=== PATIENT | female | born 1975 | race Caucasian/White ===

== ENCOUNTER → 2016-11-12 | Outpatient (CLI) | payer BC ==
--- NOTE | 2016-11-19 09:22 | MM ---
Reason for exam: screening (asymptomatic). Last mammogram was performed 4 years and 5 months ago. History: Family history of breast cancer in mother at age 55 and breast cancer in paternal aunt at age 67. Reductions of both breasts, December 2008. Took hormonal contraceptives for 20 years beginning at age 14. Physical Findings: A clinical breast exam by your physician is recommended on an annual basis and results should be correlated with mammographic findings. MG 3D Screening Mammo W/Cad Bilateral CC and MLO view(s) were taken. Prior study comparison: December 05, 2014, mammogram, performed at [facility]. November 02, 2013, mammogram, performed at [facility]. June 05, 2012, CAD bilateral diagnostic mammogram. November 06, 2011, CAD bilateral diagnostic mammogram. The breast tissue is heterogeneously dense. This may lower the sensitivity of mammography. Finding: There are typically benign dystrophic, round, grouped/clustered and diffuse calcifications in both breasts, greater in the left breast. Previous mammotome biopsy in the right breast. There is no discrete abnormality. ASSESSMENT: Benign, BI-RAD 2 RECOMMENDATION: Routine screening mammogram of both breasts in 1 year.
== END | disposition home or self-care (01) ==
LOC: RADMAMWWP 16:53
PROVIDERS: ATTEND Obstetrics & Gynecology
DX: Z12.31 Encounter for screening mammogram for malignant neoplasm of breast (principal)
CPT/HCPCS: 77063; G0202

== ENCOUNTER → 2017-01-29 | Outpatient (CLI) | payer BC ==
[2017-01-29 17:49] LABS: Basophils % (A) 1 %; CH 32.2; CHCM 33.2; Eosinophils # (A) 0.2 k/uL (0-0.7); Eosinophils % (A) 2 %; HCT 40.8 % (34.0-46.0); HDW 2.32; HGB 13.3 gm/dL (11.4-16.0); Luc # (Auto) 0.08; Luc % (Auto) 1; Lymphocytes # (A) 2.1 k/uL (1.0-4.8); Lymphocytes % (A) 27 %; MCH 31.8 pg (25.0-35.0); MCHC 32.6 g/dL (31.0-37.0); MCV 97.4 fL (80.0-100.0); Mean Platelet Volume 8.4; Monocytes # (A) 0.4 k/uL (0-1.0); Monocytes % (A) 5 %; Neutrophils # (A) 5.1 k/uL (1.3-7.7); Neutrophils % (A) 65 %; RBC 4.19 m/uL (3.80-5.40); RDW 13.3 % (11.5-15.5); WBC 7.8 k/uL (3.8-10.6); WBC (Perox) 7.25
== END | disposition home or self-care (01) ==
LOC: LABPAT 16:09
PROVIDERS: ATTEND Obstetrics & Gynecology
DX: Z01.812 Encounter for preprocedural laboratory examination (principal)
CPT/HCPCS: 36415; 85025

== ENCOUNTER → 2018-05-26 | Outpatient (CLI) | payer BC ==
--- NOTE | 2018-05-28 09:33 | MM ---
Reason for exam: screening (asymptomatic). Last mammogram was performed 1 year and 6 months ago. History: Family history of breast cancer in mother at age 55 and breast cancer in paternal aunt at age 67. Reductions of both breasts, December 2008. Took hormonal contraceptives for 20 years beginning at age 14. Physical Findings: A clinical breast exam by your physician is recommended on an annual basis and results should be correlated with mammographic findings. MG 3D Screening Mammo W/Cad Bilateral CC and MLO view(s) were taken. Prior study comparison: November 12, 2016, bilateral MG 3d screening mammo w/cad. December 05, 2014, mammogram, performed at [facility]. The breast tissue is heterogeneously dense. This may lower the sensitivity of mammography. Previous mammotome biopsy in the right breast. Stable scattered calcifications. No significant changes when compared with prior studies. ASSESSMENT: Benign, BI-RAD 2 RECOMMENDATION: Routine screening mammogram of both breasts in 1 year.
== END | disposition home or self-care (01) ==
LOC: RADMAMWWP 15:46
PROVIDERS: ATTEND Obstetrics & Gynecology
DX: Z12.31 Encounter for screening mammogram for malignant neoplasm of breast (principal); Z98.890 Other specified postprocedural states
CPT/HCPCS: 77063; 77067

== ENCOUNTER → 2019-06-09 | Outpatient (CLI) | payer BC ==
--- NOTE | 2019-06-09 22:58 | CT ---
EXAMINATION TYPE: CT abdomen pelvis w con DATE OF EXAM: 06/09/2019 HISTORY: lower abdominal pain CT DLP: 2058.8mGycm Automated Exposure Control for Dose Reduction was Utilized. CONTRAST: CT scan of the abdomen and pelvis is performed with oral and with IV Contrast, patient injected with 100 mL of Isovue 300. COMPARISON: None. FINDINGS: LUNG BASES: Cholecystectomy clips are seen. Liver is low dense relative to spleen consistent with dif fuse fatty infiltration. LIVER/GB: No significant abnormality is appreciated. PANCREAS: No significant abnormality is seen. SPLEEN: No significant abnormality is seen. ADRENALS: No significant abnormality is seen. KIDNEYS: No significant abnormality is seen. BOWEL: The oral contrast reaches level of the distal transverse colon. No suspicious small or large b owel dilatation is seen. Lap band position and angle is thought satisfactory epigastric region just b elow diaphragm. Note is made of moderate eccentric left wall thickening distal esophagus for referenc e axial image 9. This is over a roughly 3 to 4 cm segment coronal image 62 for reference. Follow-up a dvised as eccentric esophagitis and/or neoplasm are differential. Slightly redundant sigmoid colon. P oor distention of proximal sigmoid colon level coronal image 33 makes evaluation at this level is sub optimal, similar areas noted in the mid to distal sigmoid colon. UTERUS/ADNEXA: Heterogeneous anteverted uterus. Normal-sized ovaries in the adnexa adjacent to the u terine fundus. LYMPH NODES: No greater than 1cm abdominal or pelvic lymph nodes are appreciated. OSSEOUS STRUCTURES: Mild to moderate multilevel spurring in the spine. Mild to moderate disc space na rrowing with vacuum disc phenomenon L4-L5 level. Mild to moderate narrowing and spurring both hip ahsan nts, left greater than right. OTHER: Small fat-containing umbilical hernia axial image 61. IMPRESSION: 1. Acute source of lower abdominal pain not identified. 2. Lap band identified satisfactory position. Focal moderate to severe concentric wall thickening dis dorcas esophagus above the lap band present. Differential includes esophagitis and neoplasm. Further inv estigation with direct visualization is advised.
== END | disposition home or self-care (01) ==
LOC: RADCTMAIN 15:18
PROVIDERS: ATTEND Family Medicine
DX: S30.1XXD Contusion of abdominal wall, subsequent encounter (principal)
CPT/HCPCS: 74177; Q9967

== ENCOUNTER → 2019-06-22 | Outpatient (CLI) | payer BC ==
[2019-06-22 13:38] VITALS: RESP 16
--- NOTE | 2019-06-22 13:44 | P.HPBAR ---
Bariatric H&P - History & Physicial H&P Date: 06/22/19 History & Physicial: Visit/CC: BAND f/u Patient initial contact: Initial weight: Initial weight in pounds: Height: Initial BMI: Last weight: Current weight: Current weight in pounds: Current BMI: [place] body weight (based on NIH guidelines): Excess body weight loss: The patient is a 44 year-old F who presents for Bariatric Assessment. Patient here for assessment of lap band. Patient had her lap band placed [address] Galdamez. Patient states she has had difficulties over the years with frequent vomiting, 9 cough, bad reflux. Thought her band was emptied. In April had an episode of sudden abdominal discomfort that occurred in the middle of the night. The following day the pain had resolved however she noticed ecchymosis around her umbilicus. She was able to provide a photo for me to see. Underwent ult rasound following that which was normal per patient. Following that had a CAT scan of the abdomen which showed a small umbilical hernia and some thickening of the esophagus. Patient is weight is currently 242. She was to 43 at time of lap band placement. She is interested in band removal. Past Medical History Past Medical History: Hypertension History of Any Multi-Drug Resistant Organisms: None Reported Past Surgical History: Bariatric Surgery, Cholecystectomy, Tonsillectomy Additional Past Surgical History / Comment(s): carpel tunnel SX, lap band, EXC ABD SKIN REMOVAL Past Anesthesia/Blood Transfusion Reactions: Postoperative Nausea & Vomiting (PONV) Past Psychological History: No Psychological Hx Reported Smoking Status: Never smoker Past Alcohol Use History: None Reported Past Drug Use History: None Reported - Past Family History Mother Family Medical History: Cancer Additional Family Medical History / Comment(s): BREAST Surgical - Exam Vital Signs Resp 16 06/22/19 13:36 Physical exam: General: Well-developed, well-nourished HEENT: Normocephalic, sclerae nonicteric Abdomen: Nontender, nondistended, prior incisions from panniculectomy noted, no palpable hernia Extremities: No edema Neuro: Alert and oriented Bariatric Assessment & Plan (1) Intractable vomiting Narrative/Plan: Options discussed in detail with the patient. Would like to first proceed with checking the band for fluid. Her band was accessed sterilely with a Hector needle. 1 mL was evacuated. Band is now empty. I suspect this patient has a 4 mL band. At this time recommend upper endoscopy. Following that likely would recommend an proceed with lap band removal given the patient's intractable vomiting, dysphagia, night cough, and reflux. We'll continue with observation of the small umbilical hernia that is nonpalpable on exam. Status: Acute Bariatric Checklist Checklist: Plan: Checklist: EGD: 1. Hiatal hernia: 2. H. Pylori: HgbA1c: Vitamin D: Smoking: Never smoker Primary care physician referral: Psychiatry clearance: Cardiology clearance: Sleep study: Diet journal: VTE risk score: VTE risk level: Rehab needs at discharge:
[2019-06-22 13:47] VITALS: BP 158/106; PULSE 87; TEMP 98.3
== END | disposition home or self-care (01) ==
LOC: BARWHC3 13:18
PROVIDERS: ATTEND Surgery
DX: Z46.51 Encounter for fitting and adjustment of gastric lap band (principal); R11.10 Vomiting, unspecified; Z98.84 Bariatric surgery status; Z90.49 Acquired absence of other specified parts of digestive tract
CPT/HCPCS: 99211

== ENCOUNTER → 2019-09-08 | Outpatient (CLI) | payer BC | END | disposition home or self-care (01) | LOC: LABWHC1 12:13 | PROVIDERS: ATTEND Surgery | DX: Z11.59 Encounter for screening for other viral diseases (principal) ==

== ENCOUNTER 2019-09-10 07:14 | Day surgery (SDC) | payer BC ==
[2019-09-09 10:17] VITALS: BMI 40.3
[~2019-09-10 07:14] MED LIST: LACTATED RINGERS 1,000 ML IV SCH
[2019-09-10 07:42] VITALS: TEMP 97
[2019-09-10] MEDS ORDERED: LIDOCAINE 1% (10MG/ML) FOR IV START INTRADERMA ONE (07:43)
[2019-09-10] MEDS ORDERED: ONDANSETRON 4 MG/2 ML VIAL IVP ONE (07:43)
[2019-09-10] MEDS ORDERED: SCOPOLAMINE 1.5MG/72HR PATCH TRANSDERM ONE (07:43)
[2019-09-10] MEDS ORDERED: DEXAMETHASONE SOD PHOSPHATE 10 MG/ML 1 ML VIAL IV ONE (07:43)
[2019-09-10] MEDS ORDERED: fentaNYL (PF) 50 MCG/ML 2 ML AMP ONE (07:52)
[2019-09-10] MEDS ORDERED: PROPOFOL 10 MG/ML 20 ML VIAL IV ONE (07:52)
[2019-09-10] MEDS ORDERED: MIDAZOLAM 2 MG/2 ML VIAL ONE (07:52)
--- NOTE | 2019-09-10 07:55 | P.GSHP ---
History of Present Illness H&P Date: 09/10/19 Chief Complaint: Intractable vomiting Patient known to our service from recent bariatric evaluation. Please refer to H&P from June. Here today for upper endoscopy to evaluate for symptoms of dysphagia and vomiting. Band is now empty. Interested in band removal. Past Medical History Past Medical History: GERD/Reflux, Hypertension Additional Past Medical History / Comment(s): recent CT scan showed "thickening" around esophagus History of Any Multi-Drug Resistant Organisms: None Reported Past Surgical History: Bariatric Surgery, Breast Surgery, Cholecystectomy, Tonsillectomy Additional Past Surgical History / Comment(s): carpel tunnel SX, lap band, panniculectomy, breast reduction Past Anesthesia/Blood Transfusion Reactions: Motion Sickness, Postoperative Nausea & Vomiting (PONV) Smoking Status: Never smoker - Past Family History Mother Family Medical History: Cancer Additional Family Medical History / Comment(s): BREAST Medications and Allergies Home Medications Medication Instructions Recorded Confirmed Type Lisinopril-Hctz 20-12.5 mg 1 tab PO DAILY 09/09/19 09/10/19 History [Zestoretic 20-12.5] Allergies Allergy/AdvReac Type Severity Reaction Status Date / Time No Known Allergies Allergy Verified 09/09/19 10:11 Surgical - Exam Vital Signs Temp Pulse Resp BP Pulse Ox 97 F L 91 16 154/89 94 L 09/10/19 07:38 09/10/19 07:38 09/10/19 07:38 09/10/19 07:38 09/10/19 07:38 Physical exam: General: Well-developed, well-nourished HEENT: Normocephalic, sclerae nonicteric Abdomen: Nontender, nondistended Extremities: No edema Neuro: Alert and oriented Assessment and Plan (1) Intractable vomiting Narrative/Plan: Will proceed with EGD at this time. Current Visit: No Status: Acute Code(s): R11.10 - VOMITING, UNSPECIFIED SNOMED Code(s): 766472268
--- NOTE | 2019-09-10 08:08 | P.PCN ---
Date of Procedure: 09/10/19 Procedure(s) Performed: Preoperative Dx: Intractable vomiting Postoperative Dx: Mild gastritis, gastric polyps Procedure: EGD with Bx Anesthesia: Sedation Endoscopist: Dr. Schneider Specimens: Antrum, gastric polyps Endoscopic Procedure: The patient was on the endoscopy table in the left decubitus position. The Olympus gastroscope was inserted into the oropharynx and passed under direct visualization to the region of the third portion of the duodenum. From that point the scope was slowly withdrawn inspecting all surfaces carefully. There were no neoplastic inflammatory or polypoid lesions throughout the duodenum. The pylorus was widely patent. The stomach was carefully inspected. There was mild gastritis present. Multiple gastric polyps were also seen mainly in the proximal stomach. A biopsy of both the antrum and the gastric polyps took place.the band plication appeared normal. There was no evidence of erosion. The esophagus was then carefully examined. There were no neoplastic inflammatory or polypoid lesions throughout the visualized esophagus. The patient was then taken to the recovery room in stable condition per anesthesia guidelines. Recommendations: Await biopsy results. Will likely proceed with band removal
[2019-09-10 08:25] VITALS: BP 130/90; PULSE 83; RESP 20
== END 2019-09-10 08:45 | disposition home or self-care (01) ==
LOC: ORWHC2ENDO 07:14
PROVIDERS: ATTEND Surgery
DX: K29.50 Unspecified chronic gastritis without bleeding (principal); K31.7 Polyp of stomach and duodenum; K21.9 Gastro-esophageal reflux disease without esophagitis; I10 Essential (primary) hypertension; Z90.49 Acquired absence of other specified parts of digestive tract; Z98.84 Bariatric surgery status; E66.01 Morbid (severe) obesity due to excess calories; Z68.41 Body mass index [BMI] 40.0-44.9, adult; Z98.890 Other specified postprocedural states; Z80.3 Family history of malignant neoplasm of breast; Z79.899 Other long term (current) drug therapy
CPT/HCPCS: 81025; 88305; 43239; J1100; J2250; J2405; J3010; J2704

== ENCOUNTER → 2019-09-14 | Outpatient (CLI) | payer BC ==
[2019-09-14 08:57] LABS: Basophils % (A) 0 %; Eosinophils # (A) 0.2 k/uL (0-0.7); Eosinophils % (A) 3 %; HCT 43.2 % (34.0-46.0); HGB 14.1 gm/dL (11.4-16.0); Lymphocytes # (A) 1.7 k/uL (1.0-4.8); Lymphocytes % (A) 24 %; MCH 32.1 pg (25.0-35.0); MCHC 32.7 g/dL (31.0-37.0); Mean Platelet Volume 8.6; Monocytes # (A) 0.3 k/uL (0-1.0); Monocytes % (A) 4 %; Neutrophils # (A) 4.8 k/uL (1.3-7.7); Neutrophils % (A) 68 %; Platelet Count 232 k/uL (150-450); RBC 4.41 m/uL (3.80-5.40); RDW 12.7 % (11.5-15.5)
[2019-09-14 09:07] LABS: ALT 26 U/L (4-34); AST 24 U/L (14-36); African American GFR (CKD) >90 (>60 ml/min/1.73 sqM); Albumin 4.1 g/dL (3.5-5.0); Alkaline Phosphatase 59 U/L (38-126); Anion Gap 7 mmol/L; Blood Urea Nitrogen 14 mg/dL (7-17); Carbon Dioxide 27 mmol/L (22-30); Chloride 104 mmol/L (98-107); Glucose 95 mg/dL (74-99); Non-African American GFR(CKD) >90 (>60 ml/min/1.73 sqM); Potassium 4.5 mmol/L (3.5-5.1); Sodium 138 mmol/L (137-145); Total Bilirubin 0.5 mg/dL (0.2-1.3); Total Protein 6.8 g/dL (6.3-8.2)
== END | disposition home or self-care (01) ==
LOC: LABPAT 07:07
PROVIDERS: ATTEND Surgery
DX: Z01.818 Encounter for other preprocedural examination (principal); Z01.810 Encounter for preprocedural cardiovascular examination
CPT/HCPCS: 36415; 80053; 85025; 93005

== ENCOUNTER → 2019-09-14 | Outpatient (CLI) | payer BC ==
--- NOTE | 2019-09-14 10:06 | MM ---
Reason for exam: screening (asymptomatic). Last mammogram was performed 1 year and 4 months ago. History: Family history of breast cancer in mother at age 55 and breast cancer in paternal aunt at age 67. Reductions of both breasts, December 2008. Took hormonal contraceptives for 20 years beginning at age 14. Physical Findings: A clinical breast exam by your physician is recommended on an annual basis and results should be correlated with mammographic findings. MG 3D Screening Mammo W/Cad Bilateral CC, MLO, and XCCL view(s) were taken. Prior study comparison: May 26, 2018, bilateral MG 3d screening mammo w/cad. November 12, 2016, bilateral MG 3d screening mammo w/cad. The breast tissue is heterogeneously dense. This may lower the sensitivity of mammography. Benign appearing bilateral calcifications. No suspicious abnormality. No significant changes when compared with prior studies. ASSESSMENT: Benign, BI-RAD 2 RECOMMENDATION: Routine screening mammogram of both breasts in 1 year.
== END | disposition home or self-care (01) ==
LOC: RADMAMWWP 07:05
PROVIDERS: ATTEND Obstetrics & Gynecology
DX: Z12.31 Encounter for screening mammogram for malignant neoplasm of breast (principal)
CPT/HCPCS: 77063; 77067

== ENCOUNTER 2019-09-27 07:12 | Day surgery (SDC) | payer BC ==
[2019-09-24 10:40] VITALS: BMI 40.3
[~2019-09-27 07:12] MED LIST changes: +DEXAMETHASONE SOD PHOSPHATE 10 MG/ML 1 ML VIAL IV ONE; +HYDROmorphone 0.5 MG/0.5 ML SYRINGE IVP PRN; +LIDOCAINE 1% (10MG/ML) FOR IV START INTRADERMA PRN; +ONDANSETRON 4 MG/2 ML VIAL IVP ONE
--- NOTE | 2019-09-27 07:54 | P.GSHP ---
History of Present Illness H&P Date: 09/27/19 Chief Complaint: Intractable vomiting 44-year-old female who underwent laparoscopic band placement 2002. She has had trouble over the years with frequent vomiting, reflux, and night cough. When she was seen in [place] band was emptied. Unfortunately some of her symptoms pe rsisted following that. She had an interesting episode where she noticed ecchymosis around her umbilicus after having upper abdominal discomfort. She has had an ultrasound that was normal. CAT scan showed a small umbilical hernia and some esophageal thickening. Recent EGD showed gastritis and gastric polyps. No prolapse or erosion was seen. Polyps were benign. Patient remains interested in band removal. Past Medical History Past Medical History: GERD/Reflux, Hypertension History of Any Multi-Drug Resistant Organisms: None Reported Past Surgical History: Bariatric Surgery, Cholecystectomy, Tonsillectomy Additional Past Surgical History / Comment(s): carpel tunnel SX, lap band, EXC ABD SKIN REMOVAL Past Anesthesia/Blood Transfusion Reactions: Previous Problems w/ Anesthesia, Postoperative Nausea & Vomiting (PONV) Additional Past Anesthesia/Blood Transfusion Reaction / Comment(s): when waking in past d/p dropped Smoking Status: Never smoker - Past Family History Mother Family Medical History: Cancer Additional Family Medical History / Comment(s): BREAST Medications and Allergies Home Medications Medication Instructions Recorded Confirmed Type Lisinopril-Hctz 20-12.5 mg 1 tab PO DAILY 09/09/19 09/24/19 History [Zestoretic 20-12.5] Allergies Allergy/AdvReac Type Severity Reaction Status Date / Time No Known Allergies Allergy Verified 09/24/19 10:36 Surgical - Exam Physical exam: General: Well-developed, well-nourished HEENT: Normocephalic, sclerae nonicteric Abdomen: Nontender, nondistended Extremities: No edema Neuro: Alert and oriented Assessment and Plan (1) Intractable vomiting Narrative/Plan: 44-year-old female with frequent vomiting and reflux despite lap band being empty. We'll proceed with lap band removal at this time. The risks of bleeding, infection, stenosis, stricture, leak, abscess, fistula formation, peritonitis, weight gain, reflux, persistent vomiting, conversion to an open procedure, NC, PE, DVT, and were discussed. The patient understands and wishes to proceed. Current Visit: No Status: Acute Code(s): R11.10 - VOMITING, UNSPECIFIED SNOMED Code(s): 208258422
[2019-09-27] MEDS ORDERED: SCOPOLAMINE 1.5MG/72HR PATCH TRANSDERM ONE (08:09)
[2019-09-27] MEDS ORDERED: NEOSTIGMINE 1 MG/ML 10 ML VIAL ONE (09:13)
[2019-09-27] MEDS ORDERED: PROPOFOL 10 MG/ML 20 ML VIAL IV ONE (09:13)
[2019-09-27] MEDS ORDERED: ROCURONIUM BROMIDE 10 MG/ML 5 ML VIAL IV ONE (09:13)
[2019-09-27] MEDS ORDERED: GLYCOPYRROLATE 0.2 MG/ML 2 ML VIAL ONE (09:13)
[2019-09-27] MEDS ORDERED: KETOROLAC 30 MG/ML 1 ML VIAL ONE (09:13)
[2019-09-27] MEDS ORDERED: MIDAZOLAM 2 MG/2 ML VIAL ONE (09:13)
[2019-09-27] MEDS ORDERED: LIDOCAINE 1% INJ 10MG/ML (20 ML MDV) ONE (09:13)
[2019-09-27] MEDS ORDERED: SUCCINYLCHOLINE CHLORIDE 100 MG/5 ML SYR IV ONE (09:13)
[2019-09-27] MEDS ORDERED: HYDROmorphone (PF) 1 MG/ML ONE (09:13)
[2019-09-27] MEDS ORDERED: fentaNYL (PF) 50 MCG/ML 2 ML AMP ONE (09:13)
[2019-09-27] MEDS ORDERED: HEPARIN SODIUM,PORCINE 5,000 UNIT/ML 1 ML VIAL SQ ONE (09:15)
[2019-09-27] MEDS ORDERED: BUPIVACAINE (PF) 0.25% 30 ML VIAL SQ ONE (09:43)
[2019-09-27] MEDS ORDERED: LACTATED RINGERS 1,000 ML IV ONE (10:19)
[2019-09-27] MEDS ORDERED: NALOXONE 0.4 MG/ML 1 ML VIAL IV PRN (10:57)
--- NOTE | 2019-09-27 10:59 | P.OP ---
Date of Procedure: 09/27/19 Procedure(s) Performed: PREOPERATIVE DIAGNOSIS: Band intolerance/abdominal pain POSTOPERATIVE DIAGNOSIS: Same PROCEDURE: Laparoscopic lap band removal SURGEON: Jennie EBL: Minimal ANESTHESIA: General COMPLICATIONS: None OPERATIVE PROCEDURE: The patient was brought and placed on the operating room table in the supine position. The patient was placed under general anesthesia at that time. The patient was then placed in lithotomy. The abdomen was prepped and draped in the usual sterile fashion. The previous port incision was localized and then incised using a scalpel. The port was easily excised using electrocautery. Entrance into the peritoneal cavity occurred using a 5 mm optical trocar through the old trocar entrance site. Insufflation took place to 15 mmHg. A right subxiphoid 5 mm trocar was placed. This was then removed and the medium Megan hook was used to elevate the left lobe of the liver anteriorly. An additional 5 mm trocar was placed under direct visualization in the left lateral upper quadrant. The original 5 mm trocar was switched to a 15 mm trocar. A additional 5 mm trocar was placed in the right upper quadrant under direct dilatation. Another 5 mm trocar was placed in the left periumbilical location to help with retraction. There were adhesions to the band and the buckle that were lysed using electrocautery. The band was then cut using the laparoscopic gregoria. The band was then removed easily in 1 piece through the 15 mm trocar site. The stomach itself was inspected and revealed no evidence of erosion or prolapse. The fascia at the 15 mm site was closed using a [id number] Theodore-Rafat 0 Vicryl stitch. The trochars were then removed. The subcutaneous tissues at the port site was closed using a 3-0 Vicryl suture. The skin at all 5 incision sites were closed using 4-0 Monocryl sutures. Skin glue and sterile dressings were then applied. DISPOSITION: Stable to recovery room
[2019-09-27 11:02] VITALS: TEMP 96.8
[2019-09-27] MEDS ORDERED: diphenhydrAMINE 50 MG/ML 1 ML VIAL IVP ONE (11:12)
[2019-09-27] MEDS ORDERED: SODIUM CHLORIDE 0.9% 1,000 ML IV ONE ×2 (11:38)
[2019-09-27] MEDS ORDERED: ONDANSETRON 4 MG/2 ML VIAL IVP ONE (12:50)
[2019-09-27 13:05] VITALS: RESP 18
[2019-09-27 14:01] VITALS: BP 147/82; PULSE 93
== END 2019-09-27 14:24 | disposition home or self-care (01) ==
LOC: OR 07:12
PROVIDERS: ATTEND Surgery
DX: K95.09 Other complications of gastric band procedure (principal); K21.9 Gastro-esophageal reflux disease without esophagitis; I10 Essential (primary) hypertension; Z79.899 Other long term (current) drug therapy; Z98.84 Bariatric surgery status; Z90.49 Acquired absence of other specified parts of digestive tract; Z90.89 Acquired absence of other organs; Z80.3 Family history of malignant neoplasm of breast; Z98.890 Other specified postprocedural states
CPT/HCPCS: 81025; 43774; J2250; J1200; J1644; J1100; J2710; J0690; J2405; J2001; J3010; J1885; J1170; J0330; J2704

== ENCOUNTER → 2019-10-05 | Outpatient (CLI) | payer BC ==
[2019-10-05 12:24] VITALS: BP 154/101; PULSE 83; RESP 16; TEMP 98.2; BMI 42.5
--- NOTE | 2019-10-05 15:41 | P.BASOAP ---
Subjective Progress Note Date: 10/05/19 Principal diagnosis: Lap band removal Patient here today to recheck after recent lap band removal. Doing well at this time. No further nausea or vomiting. Mild pain at the port extraction site. She was able to eat pizza and steak without dysphagia. Objective - Vital Signs Vital signs: Vital Signs Temp 98.2 F 10/05/19 12:20 Pulse 83 10/05/19 12:20 Resp 16 10/05/19 12:20 BP 154/101 10/05/19 12:20 Pulse Ox Intake & Output 10/04/19 10/05/19 10/05/19 18:59 06:59 18:59 Weight 112.491 kg - Exam Abdomen: Soft, nontender, nondistended, incisions clean and dry Assessment/Plan (1) Intractable vomiting Narrative/Plan: Patient doing well at this time. Resume normal diet and activities. Follow-up as needed. Plan: Date: 10/05/19 Initial Weight: Initial BMI: Current Weight: 112.491 kg Current BMI: 42.5 Type of Surgery: Total Volume in Band: 0 Previous Volume: Volume Removed: Volume Added: Band Size:
== END | disposition home or self-care (01) ==
LOC: BARWHC3 12:15
PROVIDERS: ATTEND Surgery
DX: Z46.51 Encounter for fitting and adjustment of gastric lap band (principal); R11.10 Vomiting, unspecified
CPT/HCPCS: 99211

== ENCOUNTER → 2020-07-05 | Outpatient (CLI) | payer BC ==
--- NOTE | 2020-07-05 15:57 | US ---
EXAMINATION TYPE: US transvaginal DATE OF EXAM: 07/05/2020 COMPARISON: CT 2019 CLINICAL HISTORY: R10.2 pelvic pain. Irregular heavy cycles, pelvic pain, 3, para 2, miscarr iage 1, history of uterine ablation 2017 TECHNIQUE: Transvaginal exam only per ordering physician. Date of LMP: 07/02/2020 EXAM MEASUREMENTS: Uterus: 10.8 x 5.5 x 5.7 cm Endometrial Stripe: 0.7 cm Difficult and limited study due to patient body habitus 1. Uterus: limited visualization, heterogenous, multiple nabothian cysts 2. Endometrium: limited visualization, visualized portion appears wnl 3. Right Ovary: not seen due to overlying bowel gas 4. Left Ovary: not seen due to overlying bowel gas 5. Bilateral Adnexa: wnl 6. Posterior cul-de-sac: wnl IMPRESSION: 1. Bulky appearing uterus. There is some limitation on visualization of the uterus appears heterogeno us. Consider MRI for additional evaluation.
== END | disposition home or self-care (01) ==
LOC: LABWHC1 15:00
PROVIDERS: ATTEND Obstetrics & Gynecology
DX: N85.2 Hypertrophy of uterus (principal)
CPT/HCPCS: 76830

== ENCOUNTER → 2020-07-31 | Outpatient (CLI) | payer BC ==
[2020-07-31 08:35] VITALS: BP 153/106; PULSE 97; RESP 16; TEMP 97.7
--- NOTE | 2020-07-31 08:56 | P.PAINCN ---
History of Present Illness - Reason for Consult Consult date: 07/31/20 - History of Present Illness This is an initial consultation visit for this 45 years old female, with a chronic history of severe low back pain with radiation to the right lower extremity, she denies any numbness or tingling sensation, she denies any weakness in her lower extremity, she denies any initiating event, she reported that pain started 6 years ago, out any initiating event with the occasional flareup of her symptoms, she was treated in the past with chiropractics and medication management, with significant improvement of her pain, but over the last few months she started having pain that increases in intensity over time, she tried chiropractics without any significant relief, she tried medication management or standard without any significant improvement of her symptoms, and she is currently on Tylenol and Flexeril with only minimal benefit, he is already scheduled to have physical therapy, she reported that her pain is intense severe increased with any activity interfere with the quality of life, h e denies any change in the bowel movement or urination, denies any fever or night sweats Past Medical History Past Medical History: GERD/Reflux, Hypertension, Musculoskeletal Disorder Additional Past Medical History / Comment(s): herniated disc History of Any Multi-Drug Resistant Organisms: None Reported Past Surgical History: Bariatric Surgery, Cholecystectomy, Tonsillectomy Additional Past Surgical History / Comment(s): carpal tunnel SX, lap band, panniculectomy, Band Removed 09-27-19 Past Anesthesia/Blood Transfusion Reactions: Postoperative Nausea & Vomiting (PONV) Additional Past Anesthesia/Blood Transfusion Reaction / Comm: states passed out on way home after panniculectomy-not sure if was anesthesia related Past Psychological History: No Psychological Hx Reported Smoking Status: Never smoker Past Alcohol Use History: None Reported Past Drug Use History: None Reported - Past Family History Mother Family Medical History: Cancer Additional Family Medical History / Comment(s): BREAST Medications and Allergies Home Medications Medication Instructions Recorded Confirmed Type Lisinopril-Hctz 20-12.5 mg 1 tab PO DAILY 09/09/19 07/26/20 History [Zestoretic 20-12.5] Acetaminophen [Tylenol Extra 500 mg PO Q6H PRN 07/26/20 07/26/20 History Strength] Cyclobenzaprine [Flexeril] 10 mg PO TID PRN 07/26/20 07/26/20 History Allergies Allergy/AdvReac Type Severity Reaction Status Date / Time No Known Allergies Allergy Verified 07/26/20 10:32 Physical Exam Vitals: Vital Signs Temp Pulse Resp BP Pulse Ox 07/31/20 08:33 97.7 F 97 16 153/106 98 Physical Examinations : -Constitutiona : Cooperative , not in acute distress . -HEENT : nech : supple , no Lymphadenopathy , normal thyroid size . : eyes : no ptosis , no icterus, no photophobia . - neurologic : Cranial nerve II to XII intact , no focal neurological deffecit . -psychatric : alert , oriented X 3 , appropriate affect , intact judgment and insight . -Lymphatic : no Lymphadenopathy . - musculoskeltal : Lumber spine moter stegnth lower extremities ,thigh and legs 5/5 Right side , 5/5 Left side deep tendon reflexes : normal Knee Jerk , normal ankle Jerk lumber facet Loading Test =positive Right , positive Left Range of motion of the lumbar spine Flexion 30 degrees, extension 10 degrees strait leg raising test = positive at 30 degree on the right side and is negative on the left side Fabere test= positive Right , and negative LT . mild tenderness over the Sacroiliac joint on the Right , and Left sides . Mild tenderness over the right trochanteric bursa Results Comments: MRI of the lumbar spine= L4 5 disc degeneration, L4-5 foraminal stenosis L5-S1 disc degeneration and facet joint arthropathy L34 disc degeneration Assessment and Plan Plan: Assessment and plan=1-lumbar foraminal stenosis at L4-L5 2-lumbar degenerative disc disease. 3-lumbar spondylosis with lumbar facet arthropathy. Patient could benefit from right side transforaminal epidural steroid injection at the L4-L5 levels under fluoroscopy guidance. Time with Patient: Greater than 30 PQRS Measure Charge Sheet Measure #130: Documentation of Current Meds in Medical Chart: Patient's medications documented in chart Measure #226: Tobacco Use: Screen & Cessation Intervention: Pt not a tobacco user Measure #111: Pneumonia Vaccination: Pneumococcal vaccine NOT administered or previously given Measure #47: Advance Care Plan: Advance care planning discussed & documented, pt chose/unable to give Measure #412: Opioid Treatment Agreement: No documentation of signed opioid treatment agreement Measure #408: Opioid Therapy Follow-up Evaluation: Patient had NO f/u eval minimum every 3 months during opioid therapy Measure #317: Preventitive Care & Scrn High Bld Press & F/U: Pre-hypertensive or hypertensive BP documented, pt will f/u with PCP Measure #128: Body Mass Index (BMI) Screening & Follow-up: BMI documented ABOVE normal parameters - f/u documented Measure #131: Pain Assessment & Follow-up: Pain positive & plan documented, Follow-up scheduled Measure #431: Unhealthy Alcohol Use Preventative Care & Scrn: Patient not identified as an unhealthy alcohol user PQRS Narrative: Smoking Status Never smoker Blood Pressure 153/106 Pain Intensity [Lower Back] 3 Scale Used Numeric (1 - 10) Hx Alcohol Use (MH) No Home Medications: Ambulatory Orders Lisinopril-Hctz 20-12.5 mg [Zestoretic 20-12.5] 1 tab PO DAILY 09/09/19 Acetaminophen [Tylenol Extra Strength] 500 mg PO Q6H PRN 07/26/20 Cyclobenzaprine [Flexeril] 10 mg PO TID PRN 07/26/20
== END ==
LOC: PNWHC3 08:25
PROVIDERS: ATTEND Specialist
DX: M48.061 Spinal stenosis, lumbar region without neurogenic claudication (principal); M51.36 Other intervertebral disc degeneration, lumbar region; M47.816 Spondylosis without myelopathy or radiculopathy, lumbar region; I10 Essential (primary) hypertension; Z79.899 Other long term (current) drug therapy
CPT/HCPCS: 99211

== ENCOUNTER 2020-08-17 06:55 | Day surgery (SDC) | payer BC ==
[2020-08-14 14:58] VITALS: BMI 45.4
[~2020-08-17 06:55] MED LIST changes: -DEXAMETHASONE SOD PHOSPHATE 10 MG/ML 1 ML VIAL IV ONE; -HYDROmorphone 0.5 MG/0.5 ML SYRINGE IVP PRN; -LIDOCAINE 1% (10MG/ML) FOR IV START INTRADERMA PRN; -ONDANSETRON 4 MG/2 ML VIAL IVP ONE
[2020-08-17 07:19] VITALS: TEMP 98.6
[2020-08-17] MEDS ORDERED: LACTATED RINGERS 1,000 ML IV ONE (07:33)
[2020-08-17] MEDS ORDERED: methylPREDNISolone ACETATE 40 MG/ML 1 ML VIAL ONE (07:50)
[2020-08-17] MEDS ORDERED: MIDAZOLAM 2 MG/2 ML VIAL ONE (07:50)
[2020-08-17] MEDS ORDERED: IOPAMIDOL M200 10 ML VIAL ONE (07:50)
[2020-08-17] MEDS ORDERED: fentaNYL (PF) 50 MCG/ML 2 ML AMP ONE (07:50)
--- NOTE | 2020-08-17 08:04 | P.PCN ---
Date of Procedure: 08/17/20 Procedure(s) Performed: PREOPERATIVE DIAGNOSIS: 1-Lumbar foraminal stenosis. 2-lumbar disc herniation POSTOPERATIVE DIAGNOSIS: Same as preoperative diagnoses. PROCEDURE 1. Transforaminal epidural steroid injection under fluoroscopic guidance at right L4-5 level. (Fluoroscopy images stored on file in the radiology Department ) 2. Lumbar epidurogram . ANESTHESIA: Local with 1% lidocaine 3 ml , moderate sedation with intravenous Versed 2 mg and fentanyle 50 micrograms. EBL: Minimal PROCEDURE INDICATION: The patient with low back pain and radiculopathy symptoms unresponsive to conservative treatment. PROCEDURE DESCRIPTION / TECHNIQUE: The patient was seen and identified in the preoperative area. Risks, benefits, complications, and alternatives were discussed with the patient. The patient agreed to proceed with the procedure and signed the consent. IV was started, and vital signs were stable. Patient was taken to the OR and time out was completed. The patient was placed in the prone position on procedure table and a pillow was placed under the abdomen to reduce lumbar lordosis. The lumbosacral area was prepped and draped in the usual sterile fashion. Critical pause was taken. Vital signs were closely monitored during the procedure. Conscious sedation was used during the procedure to decrease patient s anxiety. Using oblique fluoroscopy, the chin of the `Judithy dog at Right L4-5 level was identified, and the skin and deeper tissues just below was localized with 1% lidocaine. Subsequently, a 22-gauge 3.5-inch spinal needle was advanced under a tunneled view fluoroscopic guidance just underneath the chin of the `Judithy dog at the right L4-5 Under lateral fluoroscopy, the needle was then advanced to the posterior border of the interforaminal space. After negative aspiration of CSF and blood and with no paresthesias, 1 mL Isovue 200 contrast dye was injected excellent epidurogram and outlining of the nerve root Subsequently, 3 mL of block solution containing 80 mg Depo-Medrol and 2 mL of 0.9% normal saline PF was injected. Needle was removed . At the end of the procedure, skin was cleansed, and bandages were applied. COMPLICATIONS:none DISPOSITION / PLANS: The patient was placed in a supine position and transferred to the recovery area in a stable condition for observation. There was no evidence of lower extremity motor or sensory deficit after the procedure. Patient was discharged from the recovery room after meeting discharge criteria. Home discharge instructions were given to the patient by the staff. The patient was reexamined prior to discharge.
[2020-08-17] MEDS ORDERED: IV FLUID CONTINUATION 1,000 ML IV ONE (08:05)
--- NOTE | 2020-08-17 08:09 | FL ---
EXAMINATION TYPE: FL guided pain mgmt statistic DATE OF EXAM: 08/17/2020 CLINICAL HISTORY: Low back pain. TECHNIQUE: Fluoroscopy. COMPARISON: None. FINDINGS: Fluoroscopic guidance was provided during pain relief procedure performed by Dr. Haas . A total of 8 seconds of fluoroscopic time was utilized during the procedure and 1 spot images are acquired. Single image acquired shows needle localization with contrast injection at roughly L4 leve l. IMPRESSION: As Above.
[2020-08-17 08:20] VITALS: BP 133/88; PULSE 98; RESP 14
== END 2020-08-17 08:36 | disposition home or self-care (01) ==
LOC: ORPAIN 06:55
PROVIDERS: ATTEND Specialist
DX: M48.061 Spinal stenosis, lumbar region without neurogenic claudication (principal); M51.16 Intervertebral disc disorders with radiculopathy, lumbar region
CPT/HCPCS: 81025; 64483; J2250; J1030; J3010; Q9966

== ENCOUNTER 2020-09-05 09:27 | Day surgery (SDC) | payer BC ==
[2020-09-01 11:09] VITALS: BMI 46.5
[2020-09-05 09:44] VITALS: TEMP 98.5
[2020-09-05] MEDS ORDERED: LIDOCAINE 1% (10MG/ML) FOR IV START INTRADERMA ONE (09:49)
[2020-09-05] MEDS ORDERED: fentaNYL (PF) 50 MCG/ML 2 ML AMP ONE (09:51)
[2020-09-05] MEDS ORDERED: methylPREDNISolone ACETATE 40 MG/ML 1 ML VIAL ONE (09:51)
[2020-09-05] MEDS ORDERED: IOPAMIDOL M200 10 ML VIAL ONE (09:51)
[2020-09-05] MEDS ORDERED: MIDAZOLAM 2 MG/2 ML VIAL ONE (09:51)
--- NOTE | 2020-09-05 10:06 | P.PCN ---
Date of Procedure: 09/05/20 Procedure(s) Performed: PREOPERATIVE DIAGNOSIS: 1-Lumbar foraminal stenosis. 2-lumbar disc herniation POSTOPERATIVE DIAGNOSIS: Same as preoperative diagnoses. PROCEDURE 1. Transforaminal epidural steroid injection under fluoroscopic guidance at right L4-5 level. (Fluoroscopy images stored on file in the radiology Department ) 2. Lumbar epidurogram . ANESTHESIA: Local with 1% lidocaine 3 ml , moderate sedation with intravenous Versed 2 mg and fentanyle 50 micrograms. EBL: Minimal PROCEDURE INDICATION: The patient with low back pain and radiculopathy symptoms unresponsive to conservative treatment. PROCEDURE DESCRIPTION / TECHNIQUE: The patient was seen and identified in the preoperative area. Risks, benefits, complications, and alternatives were discussed with the patient. The patient agreed to proceed with the procedure and signed the consent. IV was started, and vital signs were stable. Patient was taken to the OR and time out was completed. The patient was placed in the prone position on procedure table and a pillow was placed under the abdomen to reduce lumbar lordosis. The lumbosacral area was prepped and draped in the usual sterile fashion. Critical pause was taken. Vital signs were closely monitored during the procedure. Conscious sedation was used during the procedure to decrease patient s anxiety. Using oblique fluoroscopy, the chin of the ``Tyrone dog at Right L4-5 level was identified, and the skin and deeper tissues just below was localized with 1% lidocaine. Subsequently, a 22-gauge 5-inch spinal needle was advanced under a tunneled view fluoroscopic guidance just underneath the chin of the ``Tyrone dog at the right L4-5 Under lateral fluoroscopy, the needle was then advanced to the posterior border of the interforaminal space. After negative aspiration of CSF and blood and with no paresthesias, 1 mL Isovue 200 contrast dye was injected excellent epidurogram and outlining of the nerve root Subsequently, 3 mL of block solution containing 80 mg Depo-Medrol and 2 mL of 0.9% normal saline PF was injected. Needle was removed . At the end of the procedure, skin was cleansed, and bandages were applied. COMPLICATIONS:none DISPOSITION / PLANS: The patient was placed in a supine position and transferred to the recovery area in a stable condition for observation. There was no evidence of lower extremity motor or sensory deficit after the procedure. Patient was discharged from the recovery room after meeting discharge criteria. Home discharge instructions were given to the patient by the staff. The patient was reexamined prior to discharge.
[2020-09-05] MEDS ORDERED: IV FLUID CONTINUATION 1,000 ML IV ONE (10:08)
[2020-09-05 10:13] VITALS: RESP 18
[2020-09-05 10:24] VITALS: BP 127/78; PULSE 67
--- NOTE | 2020-09-05 10:31 | FL ---
Fluoroscopy HISTORY: Pain 18 seconds fluoroscopy time supplied to the referring clinician. 2 intraoperative C-arm images docum ent the procedure. See dictated report from anesthesia.
== END 2020-09-05 10:44 | disposition home or self-care (01) ==
LOC: ORPAIN 09:27
PROVIDERS: ATTEND Specialist
DX: M48.061 Spinal stenosis, lumbar region without neurogenic claudication (principal); M51.16 Intervertebral disc disorders with radiculopathy, lumbar region
CPT/HCPCS: 81025; 64483; J2250; J1030; J3010; Q9966; 99152

== ENCOUNTER → 2020-09-15 | Outpatient (CLI) | payer BC ==
--- NOTE | 2020-09-19 09:13 | MM ---
Reason for exam: screening (asymptomatic). Last mammogram was performed 1 year ago. History: Family history of breast cancer in mother at age 55 and breast cancer in paternal aunt at age 67. Reductions of both breasts, December 2008. Took hormonal contraceptives for 20 years beginning at age 14. Physical Findings: A clinical breast exam by your physician is recommended on an annual basis and results should be correlated with mammographic findings. MG 3D Screening Mammo W/Cad Bilateral CC and MLO view(s) were taken. Prior study comparison: September 14, 2019, bilateral MG 3d screening mammo w/cad. May 26, 2018, bilateral MG 3d screening mammo w/cad. The breast tissue is heterogeneously dense. This may lower the sensitivity of mammography. Fat necrosis calcifications anterior left breast redemonstrated. Scattered benign round and punctate calcifications. ASSESSMENT: Benign, BI-RAD 2 RECOMMENDATION: Routine screening mammogram of both breasts in 1 year.
== END | disposition home or self-care (01) ==
LOC: RADMAMWWP 16:19
PROVIDERS: ATTEND Obstetrics & Gynecology
DX: Z12.31 Encounter for screening mammogram for malignant neoplasm of breast (principal); Z80.3 Family history of malignant neoplasm of breast
CPT/HCPCS: 77063; 77067

== ENCOUNTER → 2020-09-27 | Outpatient (CLI) | payer BC ==
[2020-09-27 14:26] VITALS: BP 149/101; PULSE 95; RESP 16; TEMP 97.8
--- NOTE | 2020-09-27 15:00 | P.PN ---
Subjective Progress Note Date: 09/27/20 This is follow up visit for this 45 years old female, with a chronic history of severe low back pain with radiation to the right lower extremity, she denies any numbness or tingling sensation, she denies any weakness in her lower extremity, recently we have done the right-sided transforaminal epidural steroid injection at L4 5 she had significant improvement in her symptoms , he is already scheduled to have physical therapy, she reported that her pain is intense severe increased with any activity interfere with the quality of life, he denies any change in the bowel movement or urination, denies any fever or night sweats Physical Examinations : -Constitutiona : Cooperative , not in acute distress . -HEENT : nech : supple , no Lymphadenopathy , normal thyroid size . : eyes : no ptosis , no icterus, no photophobia . - neurologic : Cranial nerve II to XII intact , no focal neurological deffecit . -psychatric : alert , oriented X 3 , appropriate affect , intact judgment and insight . -Lymphatic : no Lymphadenopathy . - musculoskeltal : Lumber spine moter stegnth lower extremities ,thigh and legs 5/5 Right side , 5/5 Left side deep tendon reflexes : normal Knee Jerk , normal ankle Jerk lumber facet Loading Test =positive Right , positive Left Range of motion of the lumbar spine Flexion 30 degrees, extension 10 degrees strait leg raising test = positive at 30 degree on the right side and is negative on the left side Fabere test= positive Right , and negative LT . mild tenderness over the Sacroiliac joint on the Right , and Left sides . Mild tenderness over the right trochanteric bursa Results Comments: MRI of the lumbar spine= L4 5 disc degeneration, L4-5 foraminal stenosis L5-S1 disc degeneration and facet joint arthropathy L34 disc degeneration Assessment and Plan Plan: Assessment and plan=1-lumbar foraminal stenosis at L4-L5 2-lumbar degenerative disc disease. 3-lumbar spondylosis with lumbar facet arthropathy. Patient could benefit from repeat right side transforaminal epidural steroid injection at the L4-L5 levels under fluoroscopy guidance. PQRS Measure Charge Sheet Measure #130: Documentation of Current Meds in Medical Chart: Patient's medications documented in chart Measure #226: Tobacco Use: Screen & Cessation Intervention: Pt not a tobacco user Measure #111: Pneumonia Vaccination: Pneumococcal vaccine NOT administered or previously given Measure #47: Advance Care Plan: Advance care planning discussed & documented, pt chose/unable to give Measure #412: Opioid Treatment Agreement: No documentation of signed opioid treatment agreement Measure #408: Opioid Therapy Follow-up Evaluation: Patient had NO f/u eval minimum every 3 months during opioid therapy Measure #317: Preventitive Care & Scrn High Bld Press & F/U: Pre-hypertensive or hypertensive BP documented, pt will f/u with PCP Measure #128: Body Mass Index (BMI) Screening & Follow-up: BMI documented ABOVE normal parameters - f/u documented Measure #131: Pain Assessment & Follow-up: Pain positive & plan documented, Follow-up scheduled Measure #431: Unhealthy Alcohol Use Preventative Care & Scrn: Patient not identified as an unhealthy alcohol user PQRS Narrative: Objective - Vital Signs Vital signs: Vital Signs Temp 97.8 F 09/27/20 14:24 Pulse 95 09/27/20 14:24 Resp 16 09/27/20 14:24 BP 149/101 09/27/20 14:24 Pulse Ox 98 09/27/20 14:24 Intake & Output 09/26/20 09/27/20 09/27/20 18:59 06:59 18:59 Weight 120.202 kg
== END ==
LOC: PNWHC3 14:17
PROVIDERS: ATTEND Specialist
DX: M48.061 Spinal stenosis, lumbar region without neurogenic claudication (principal); M51.36 Other intervertebral disc degeneration, lumbar region; M47.816 Spondylosis without myelopathy or radiculopathy, lumbar region
CPT/HCPCS: 99211

== ENCOUNTER 2020-10-10 07:26 | Emergency (ER) | payer BC ==
[2020-10-10 07:35] VITALS: RESP 18; TEMP 97.9
[2020-10-10] MEDS ORDERED: KETOROLAC 15 MG/ML 1 ML VIAL IM STA (08:10)
--- NOTE | 2020-10-10 08:28 | ED ---
General Adult HPI - General Chief complaint: Back Pain/Injury Stated complaint: Lower Back Pain Time Seen by Provider: 10/10/20 07:43 Source: patient, RN notes reviewed, old records reviewed Mode of arrival: ambulatory Limitations: no limitations - History of Present Illness Initial comments: 45-year-old female presenting with worsening back pain. Patient has been followed with both orthospine and the anesthesia clinic for pain management. She has recently started physical therapy and has had worsening pain over the past one week. She denies any specific injury or trauma. No fever. She is otherwise healthy. She's been taking naproxen, Flexeril and Tylenol at home with only minimal relief. She does have a known disc herniation and does have some intermittent symptoms of numbness on the lateral aspect of the right leg. There is no bowel or bladder incontinence. No saddle anesthesia. She has been able to walk although pain is limiting the amount of activity. She has an appointment in 2 days for injection. - Related Data Home Medications Medication Instructions Recorded Confirmed Lisinopril-Hctz 20-12.5 mg 1 tab PO DAILY 09/09/19 09/26/20 [Zestoretic 20-12.5] Acetaminophen [Tylenol Extra 500 mg PO Q6H PRN 07/26/20 09/26/20 Strength] Cyclobenzaprine [Flexeril] 10 mg PO TID PRN 07/26/20 09/26/20 Naproxen Sodium 550 mg PO BID PRN 10/10/20 10/10/20 Allergies Allergy/AdvReac Type Severity Reaction Status Date / Time No Known Allergies Allergy Verified 10/10/20 08:35 Review of Systems ROS Statement: Those systems with pertinent positive or pertinent negative responses have been documented in the HPI. ROS Other: All systems not noted in ROS Statement are negative. Past Medical History Past Medical History: GERD/Reflux, Hypertension, Musculoskeletal Disorder Additional Past Medical History / Comment(s): herniated disc History of Any Multi-Drug Resistant Organisms: None Reported Past Surgical History: Bariatric Surgery, Cholecystectomy, Tonsillectomy Additional Past Surgical History / Comment(s): carpal tunnel SX, lap band, p anniculectomy, Band Removed 09-27-19, PAIN CLINIC PROCEDURE Past Anesthesia/Blood Transfusion Reactions: Postoperative Nausea & Vomiting (PONV) Additional Past Anesthesia/Blood Transfusion Reaction / Comment(s): states passed out on way home after panniculectomy-not sure if was anesthesia related Past Psychological History: No Psychological Hx Reported Smoking Status: Never smoker Past Alcohol Use History: None Reported Past Drug Use History: None Reported - Past Family History Mother Family Medical History: Cancer Additional Family Medical History / Comment(s): BREAST General Exam Limitations: no limitations General appearance: alert, in no apparent distress Head exam: Present: atraumatic, normocephalic Eye exam: Present: normal appearance, PERRL ENT exam: Present: normal exam Neck exam: Present: normal inspection. Absent: tenderness, meningismus Respiratory exam: Present: normal lung sounds bilaterally. Absent: respiratory distress, wheezes Cardiovascular Exam: Present: regular rate, normal rhythm GI/Abdominal exam: Present: soft. Absent: distended, tenderness, guarding Extremities exam: Present: normal inspection, normal capillary refill. Absent: pedal edema Back exam: Present: paraspinal tenderness Neurological exam: Present: alert, oriented X3, CN II-XII intact. Absent: motor sensory deficit Psychiatric exam: Present: normal affect, normal mood Skin exam: Present: warm, dry, intact. Absent: cyanosis, diaphoretic Course Vital Signs 10/10/20 07:34 Temperature 97.9 F Pulse Rate 87 Respiratory 18 Rate Blood Pressure 137/87 O2 Sat by Pulse 97 Oximetry Medical Decision Making - Medical Decision Making 45-year-old female with acute on chronic back pain. She does have an appointment for the pain management clinic in 2 days. We were able to contact and arrange for evaluation today at 11 AM. The patient will be discharged from the emergency department and will follow-up with the pain clinic. She is feeling better after Toradol. Disposition Clinical Impression: Back pain Disposition: HOME SELF-CARE Condition: Good Instructions (If sedation given, give patient instructions): Acute Low Back Pain (ED) Is patient prescribed a controlled substance at d/c from ED?: No Referrals: Mallika Chau DO [Primary Care Provider] - 1-2 days Time of Disposition: 08:54
[2020-10-10 09:01] VITALS: BP 128/80; PULSE 82
== END 2020-10-10 09:01 | disposition home or self-care (01) ==
LOC: EC 07:26
DX: M54.5 Low back pain (principal); I10 Essential (primary) hypertension; K21.9 Gastro-esophageal reflux disease without esophagitis
CPT/HCPCS: 99283; 96372; J1885

== ENCOUNTER 2020-10-10 11:01 | Day surgery (SDC) | payer BC ==
[2020-10-10] MEDS ORDERED: LACTATED RINGERS 1,000 ML IV SCH ×2 (11:15)
[2020-10-10] MEDS ORDERED: LACTATED RINGERS 1,000 ML IV ONE (11:20)
[2020-10-10] MEDS ORDERED: methylPREDNISolone ACETATE 40 MG/ML 1 ML VIAL ONE (11:21)
[2020-10-10] MEDS ORDERED: fentaNYL (PF) 50 MCG/ML 2 ML AMP ONE (11:21)
[2020-10-10] MEDS ORDERED: IOPAMIDOL M200 10 ML VIAL ONE (11:21)
[2020-10-10] MEDS ORDERED: MIDAZOLAM 2 MG/2 ML VIAL ONE (11:21)
[2020-10-10 11:22] VITALS: RESP 16; TEMP 97.6
--- NOTE | 2020-10-10 11:37 | P.PCN ---
Date of Procedure: 10/10/20 Procedure(s) Performed: PREOPERATIVE DIAGNOSIS: 1-Lumbar foraminal stenosis. 2-lumbar disc herniation POSTOPERATIVE DIAGNOSIS: Same as preoperative diagnoses. PROCEDURE 1. Transforaminal epidural steroid injection under fluoroscopic guidance at right L4-5 level. (Fluoroscopy images stored on file in the radiology Department ) 2. Lumbar epidurogram . ANESTHESIA: Local with 1% lidocaine 3 ml , moderate sedation with intravenous Versed 2 mg and fentanyle 50 micrograms. EBL: Minimal PROCEDURE INDICATION: The patient with low back pain and radiculopathy symptoms unresponsive to conservative treatment. PROCEDURE DESCRIPTION / TECHNIQUE: The patient was seen and identified in the preoperative area. Risks, benefits, complications, and alternatives were discussed with the patient. The patient agreed to proceed with the procedure and signed the consent. IV was started, and vital signs were stable. Patient was taken to the OR and time out was completed. The patient was placed in the prone position on procedure table and a pillow was placed under the abdomen to reduce lumbar lordosis. The lumbosacral area was prepped and draped in the usual sterile fashion. Critical pause was taken. Vital signs were closely monitored during the procedure. Conscious sedation was used during the procedure to decrease patient s anxiety. Using oblique fluoroscopy, the chin of the ``Tyrone dog at Right L4-5 level was identified, and the skin and deeper tissues just below was localized with 1% lidocaine. Subsequently, a 22-gauge 5-inch spinal needle was advanced under a tunneled view fluoroscopic guidance just underneath the chin of the ``Tyrone dog at the right L4-5 Under lateral fluoroscopy, the needle was then advanced to the posterior border of the interforaminal space. After negative aspiration of CSF and blood and with no paresthesias, 1 mL Isovue 200 contrast dye was injected excellent epidurogram and outlining of the nerve root Subsequently, 3 mL of block solution containing 80 mg Depo-Medrol and 2 mL of 0.9% normal saline PF was injected. Needle was removed . At the end of the procedure, skin was cleansed, and bandages were applied. COMPLICATIONS:none DISPOSITION / PLANS: The patient was placed in a supine position and transferred to the recovery area in a stable condition for observation. There was no evidence of lower extremity motor or sensory deficit after the procedure. Patient was discharged from the recovery room after meeting discharge criteria. Home discharge instructions were given to the patient by the staff. The patient was reexamined prior to discharge.
[2020-10-10] MEDS ORDERED: IV FLUID CONTINUATION 1,000 ML IV ONE (11:40)
[2020-10-10 11:57] VITALS: BP 139/90; PULSE 90
--- NOTE | 2020-10-10 13:10 | FL ---
EXAMINATION TYPE: FL guided pain mgmt statistic DATE OF EXAM: 10/10/2020 HISTORY: Pain,Rt Transforaminal Inj 6sec fluoro time 1 Image to PACS
== END 2020-10-10 12:10 | disposition home or self-care (01) ==
LOC: ORPAIN 11:01
PROVIDERS: ATTEND Anesthesiology
DX: M48.061 Spinal stenosis, lumbar region without neurogenic claudication (principal); M51.26 Other intervertebral disc displacement, lumbar region
CPT/HCPCS: 81025; 64483; J2250; J1030; J3010; Q9966; 99152

== ENCOUNTER → 2021-06-18 | Outpatient (CLI) | payer BC ==
[2021-06-18 22:53] LABS: Basophils # (A) 0.04 X 10*3/uL (0.00-0.10); Basophils % (A) 0.6 %; Eosinophils # (A) 0.23 X 10*3/uL (0.04-0.35); Eosinophils % (A) 3.2 %; HCT 39.7 % (37.2-46.3); HGB 12.7 g/dL (12.0-15.0); Immature Grans, Automated 0.3 %; Lymphocytes # (A) 2.31 X 10*3/uL (0.90-5.00); Lymphocytes % (A) 32.5 %; MCH 31.4 pg (27.0-32.0); Mean Platelet Volume 11.6 fL (9.5-12.2); Monocytes # (A) 0.41 X 10*3/uL (0.20-1.00); Monocytes % (A) 5.8 %; NRBC Per 100 WBC 0 /100 WBCS (0.0-0.0); Neutrophils # (A) 4.09 X 10*3/uL (1.80-7.70); Neutrophils % (A) 57.6 %; Platelet Count 257 X 10*3/uL (140-440); RBC 4.05 X 10*6/uL (4.10-5.20); RDW 12.3 % (11.5-14.5)
[2021-06-18 23:16] LABS: Anion Gap 11.2 mmol/L (10.00-18.00); BUN/Creat Ratio 13.5 Ratio (12.00-20.00); Blood Urea Nitrogen 10.8 mg/dL (9.0-27.0); Calcium 9.6 mg/dL (8.7-10.3); Carbon Dioxide 24.8 mmol/L (20.0-27.5); Non-African American GFR(CKD) 87.2 (60.0-200.0); Potassium 4.3 mmol/L (3.5-5.5)
== END | disposition home or self-care (01) ==
LOC: LABPAT 16:07
PROVIDERS: ATTEND Obstetrics & Gynecology
DX: Z01.812 Encounter for preprocedural laboratory examination (principal)
CPT/HCPCS: 80048; 85025

== ENCOUNTER 2021-06-21 05:35 | Observation (INO) | payer BC ==
[2021-06-18 14:34] VITALS: BMI 44.2
--- NOTE | 2021-06-20 15:07 | P.HPOB ---
History of Present Illness H&P Date: 06/20/21 Chief Complaint: menorrhagia 46 year old presents for [facility] BS with da vinici and diagnostic cystoscopy due to heavy irregular menses despite novasure ablation. Review of Systems All systems: negative Constitutional: Denies chills, Denies fever Eyes: denies blurred vision, denies pain Ears, nose, mouth and throat: Denies headache, Denies sore throat Cardiovascular: Denies chest pain, Denies shortness of breath Respiratory: Denies cough Gastrointestinal: Denies abdominal pain, Denies diarrhea, Denies nausea, Denies vomiting Genitourinary: Denies dysuria, Denies hematuria Musculoskeletal: Denies myalgias Integumentary: Denies pruritus, Denies rash Neurological: Denies numbness, Denies weakness Psychiatric: Denies anxiety, Denies depression Endocrine: Denies fatigue, Denies weight change Past Medical History Past Medical History: Diabetes Mellitus, GERD/Reflux, Hypertension, Muscul oskeletal Disorder Additional Past Medical History / Comment(s): herniated disc History of Any Multi-Drug Resistant Organisms: None Reported Past Surgical History: Bariatric Surgery, Cholecystectomy, Tonsillectomy, Uterine Ablation Additional Past Surgical History / Comment(s): BILAT carpal tunnel SX, lap band, panniculectomy, Band Removed 09-27-19, PAIN CLINIC PROCEDURE, EGD, Past Anesthesia/Blood Transfusion Reactions: Postoperative Nausea & Vomiting (PONV) Additional Past Anesthesia/Blood Transfusion Reaction / Comment(s): states passed out on way home after panniculectomy-not sure if was anesthesia related Smoking Status: Never smoker - Past Family History Mother Family Medical History: Cancer Additional Family Medical History / Comment(s): BREAST Medications and Allergies Home Medications Medication Instructions Recorded Confirmed Type Metoprolol Succinate [Toprol XL] 25 mg PO DAILY 06/18/21 06/18/21 History Semaglutide [Ozempic] 0.25 mg SQ SA 06/18/21 06/18/21 History lisinopriL 30 mg PO DAILY 06/18/21 06/18/21 History Allergies Allergy/AdvReac Type Severity Reaction Status Date / Time No Known Allergies Allergy Verified 06/18/21 14:23 Exam Osteopathic Statement: *. No significant issues noted on an osteopathic structural exam other than those noted in the History and Physical/Consult. HEart: RRR Lungs: CTAB Abdomen: soft, nontender Extremeties: neg lesley's Assessment and Plan (1) Menorrhagia Status: Chronic Code(s): N92.0 - EXCESSIVE AND FREQUENT MENSTRUATION WITH REGULAR CYCLE SNOMED Code(s): 481997075 Plan: 1. Total laparoscopic hysterectomy with bilateral salpingectomy using da jayla and diagnostic cystoscopy. possible [facility]ARK [facility]
[2021-06-21] MEDS ORDERED: SCOPOLAMINE 1.5MG/72HR PATCH TRANSDERM ONE ×2 (05:50→06:36)
[2021-06-21] MEDS ORDERED: ONDANSETRON 4 MG/2 ML VIAL IVP ONE (05:50)
[2021-06-21] MEDS ORDERED: MIDAZOLAM 2 MG/2 ML VIAL IV PRN (05:50)
[2021-06-21] MEDS ORDERED: DEXAMETHASONE SOD PHOSPHATE 4 MG/ML 1 ML VIAL IV ONE (05:50)
[2021-06-21] MEDS: LACTATED RINGERS 1,000 ML IV SCH (06:01)
[2021-06-21] MEDS ORDERED: LIDOCAINE 1% (10MG/ML) FOR IV START INTRADERMA ONE (06:31)
[2021-06-21 06:32] LABS: Glucose,Whole Blood 103 mg/dL (75-99)
[2021-06-21] MEDS ORDERED: MIDAZOLAM 2 MG/2 ML VIAL IVP ONE (06:56)
[2021-06-21] MEDS ORDERED: fentaNYL (PF) 50 MCG/ML 2 ML AMP IVP ONE (06:56)
[2021-06-21] MEDS ORDERED: LIDOCAINE 1% INJ 10MG/ML (20 ML MDV) ONE (07:16)
[2021-06-21] MEDS ORDERED: ROPIVACAINE 5 MG/ML 30 ML VIAL ONE (07:16)
[2021-06-21] MEDS ORDERED: HYDROmorphone (PF) 1 MG/ML ONE (07:16)
[2021-06-21] MEDS ORDERED: PHENYLEPHRINE-0.9% NACL SYG 1,000 MCG/10 ML SYRINGE ONE (07:16)
[2021-06-21] MEDS ORDERED: fentaNYL (PF) 50 MCG/ML 2 ML AMP ONE (07:16)
[2021-06-21] MEDS ORDERED: ROCURONIUM 10 MG/ML (5 ML VIAL) IV ONE (07:16)
[2021-06-21] MEDS ORDERED: NEOSTIGMINE 1 MG/ML 10 ML VIAL ONE (07:16)
[2021-06-21] MEDS ORDERED: GLYCOPYRROLATE 0.2 MG/ML 2 ML VIAL ONE (07:16)
[2021-06-21] MEDS ORDERED: SUCCINYLCHOLINE CHLORIDE 100 MG/5 ML SYR IV ONE (07:16)
[2021-06-21] MEDS ORDERED: SODIUM CHLORIDE 0.9% (PF) 10 ML VIAL ONE (07:16)
[2021-06-21] MEDS ORDERED: KETOROLAC 15 MG/ML 1 ML VIAL ONE (07:16)
[2021-06-21] MEDS ORDERED: MIDAZOLAM 2 MG/2 ML VIAL ONE (07:16)
[2021-06-21] MEDS ORDERED: PROPOFOL 10 MG/ML 20 ML VIAL IV ONE (07:16)
[2021-06-21] MEDS ORDERED: BUPIVACAINE (PF) 0.25% 30 ML VIAL SQ ONE ×2 (08:09)
--- NOTE | 2021-06-21 08:59 | P.OP ---
Date of Procedure: 06/21/21 Preoperative Diagnosis: Total laparoscopic hysterectomy bilateral salpingectomy using da Joy and diagnostic cystoscopy Postoperative Diagnosis: 1. Dysfunctional uterine bleeding, menorrhagia Procedure(s) Performed: 1. Same Anesthesia: АНДРЕЙ Surgeon: Kristi Mccartney Estimated Blood Loss (ml): 25 IV fluids (ml): 700 Urine output (ml): 100 Pathology: other (Uterus cervix bilateral fallopian tubes) Condition: stable Disposition: PACU Operative Findings: Uterus sounded to 10 cm. Normal uterus, tubes, ovaries. Description of Procedure: Patient taken the operating room where general anesthesia was obtained without difficulty. She is prepped and draped in normal sterile fashion dorsal lithotomy position, legs placed in the Armond stirrups. Weighted speculum placed in the vagina and the anterior lip the cervix was grasped with single-tooth tenaculum. The uterus sounded to 10 cm and the cervix diameter was 3.5 cm. The appropriate manipulator tip and ring were placed on the Marisol manipulator. The Marisol manipulator was then placed in the uterus. Ariza catheter was also placed. Attention was then turned to the abdomen and gloves were changed. A 5 mm supraumbilical incision was made the scalpel and a 5 mm optical trocar was placed under direct visualization. 10 cm to the right of this and 2 cm down a 5 mm incision was made and 8 mm da Joy port was placed under direct visualization. Same measurements on the opposite side of the patient's abdomen, the 5 mm incision was made and 8 mm da Joy port was placed under direct visualization. In the left upper quadrant a 10 mm incision was made and a 10 mm optical trocar was placed under direct visualization. The 5 mm optical trocar was then replaced with the 8 mm da Joy camera port. The robot was docked on patient's right side. The camera was introduced and then the monopolar curved scissor and Maryland bipolar placed under direct visualization. I broke scrub and went to the physician console. The left mesosalpinx was cauterized with the [place] bipolar and cut with monopolar curved scissors to free the left fallopian tube. The left round ligament and utero-ovarian ligament were cauterized with the [place] bipolar and cut with monopolar curved scissors. The posterior leaf of the broad ligament was taken down using the monopolar curved scissors. Anterior leaf of the broad ligament was then taken down using the monopolar curved scissors. The uterine artery was cauterized with the [place] bipolar and cut with monopolar curved scissors. The bladder flap was then started using the monopolar curved scissors. Attention was then turned to the right side of the patient's anatomy and the right salpinx was cauterized with the [place] bipolar and cut with monopolar curved scissors to free the right fallopian tube. The right round ligament and utero-ovarian ligament were cauterized with the [place] bipolar and cut with monopolar curved scissors. Posterior leaf of the broad ligament was taken down using the monopolar curved scissors and the anterior leaf was taken down using the monopolar curved scissors. The uterine artery was cauterized the Maryland bipolar cut with monopolar curved scissors. The bladder flap was then finished on this side. Anterior colpotomy was made using the monopolar curved scissors. The rest of the uterus was from the vaginal cuff by following the ring around with the monopolar curved scissors through the uterosacral ligaments back to the anterior portion. Once the uterus and cervix were amputated they were pulled through the vaginal cuff. Hemostasis was assured. The instruments were changed for the Cardier forcep and the rei suture cut. The vaginal cuff was then closed using O Vicryl in 4 individual [id number] stitches. Hemostasis was again assured and the pelvis was irrigated. All instruments were removed from the abdomen and the robot was undocked. I scrubbed back in to perform a cystoscopy. There were jets from both ureteral orifices. The abdominal incisions were closed with 4-0 Monocryl in a subcuticular fashion. Patient tolerated the procedure well, sponge and instrument counts correct 2 and she was taken to recovery room in stable condition condition
[2021-06-21] MEDS: HYDROmorphone 0.5 MG/0.5 ML SYRINGE IVP PRN ×2 (09:53→10:00)
[2021-06-21] MEDS ORDERED: LACTATED RINGERS 1,000 ML IV ONE (09:57)
[2021-06-21] MEDS ORDERED: diphenhydrAMINE 50 MG/ML 1 ML VIAL IVP PRN (10:54)
[2021-06-21] MEDS ORDERED: ONDANSETRON 4 MG/2 ML VIAL IVP PRN (10:54)
[2021-06-21] MEDS ORDERED: SIMETHICONE 80 MG CHEWABLE PO PRN (10:54)
[2021-06-21] MEDS ORDERED: Acetaminophen-Codeine 300-30mg TAB PO PRN ×2 (10:54)
[2021-06-21] MEDS ORDERED: METOCLOPRAMIDE 5 MG/ML 2 ML VIAL IVP PRN (10:54)
[2021-06-21] MEDS: SENNOSIDES-DOCUSATE SODIUM 1 EACH TAB PO SCH ×2 (11:57→20:21)
[2021-06-21] MEDS: lisinopriL 10 MG TAB PO SCH (12:29)
[2021-06-21] MEDS: METOPROLOL SUCCINATE (ER) 25 MG TAB.ER.24H PO SCH (12:30)
--- NOTE | 2021-06-21 14:53 | P.ANPRN ---
Procedure Note - Anesthesia - Nerve Block Performed Bilateral Erector Spinae Single Time Out Performed: Yes (0656) Date of Procedure: 06/21/21 Procedure Start Time: 06:57 Procedure Stop Time: 07:02 Location of Patient: PreOp Indication: Acute Post-Operative Pain, Requested by Surgeon Specifically requested for management of pain by DrVj: Kristi Mccartney Sedation Type: Sedate with meaningful contact maintained Preparation: Sterile Prep Position: Supine Catheter: None Needle Types: Pajunk Needle Gauge: 21 Ultrasound used to visualize needle placement: Yes Ultrasound used to observe medication spread: Yes Injectate: 0.5% Ropivacaine (see comment for volume) (15cc + 5cc nacl each side) Blood Aspirated: No Pain Paresthesia on Injection Noted: No Resistance on Injection: Normal Image Stored and Saved: Yes Events: Uneventful and Well Tolerated
--- NOTE | 2021-06-21 14:55 | P.ANPRN ---
Procedure Note - Anesthesia - Nerve Block Performed Right Adductor Canal Infusion Time Out Performed: Yes (0713) Date of Procedure: 06/21/21 Procedure Start Time: :14 Procedure Stop Time: :21 Location of Patient: PreOp Indication: Acute Post-Operative Pain, Requested by Surgeon Specifically requested for management of pain by DrVj: Aureliano Dumont Sedation Type: Sedate with meaningful contact maintained Preparation: Sterile Prep, Sterile Dressing Position: Supine Catheter Depth at Skin (cm): 8 Catheter: Indwelling Needle Types: Pajunk Needle Gauge: 18 Ultrasound used to visualize needle placement: Yes Ultrasound used to observe medication spread: Yes Injectate: 0.5% Ropivacaine (see comment for volume) (15cc + 5cc nacl) Blood Aspirated: No Pain Paresthesia on Injection Noted: No Resistance on Injection: Normal Image Stored and Saved: Yes Events: Uneventful and Well Tolerated
--- NOTE | 2021-06-21 14:57 | P.ANPRN ---
Procedure Note - Anesthesia - Nerve Block Performed Right iPack Single Time Out Performed: Yes (0713) Date of Procedure: 06/21/21 Procedure Start Time: Procedure Stop Time: Location of Patient: PreOp Indication: Acute Post-Operative Pain, Requested by Surgeon Specifically requested for management of pain by DrVj: Aureliano Dumont Sedation Type: Sedate with meaningful contact maintained Preparation: Sterile Prep Position: Supine Catheter: None Needle Types: Pajunk Needle Gauge: 21 Ultrasound used to visualize needle placement: Yes Ultrasound used to observe medication spread: Yes Injectate: 0.5% Ropivacaine (see comment for volume) (15cc + 5cc) Blood Aspirated: No Pain Paresthesia on Injection Noted: No Resistance on Injection: Normal Image Stored and Saved: Yes Events: Uneventful and Well Tolerated
[2021-06-21] MEDS: KETOROLAC 15 MG/ML 1 ML VIAL IVP PRN (15:47)
[2021-06-22] MEDS: KETOROLAC 15 MG/ML 1 ML VIAL IVP PRN
[2021-06-22] MEDS: LACTATED RINGERS 1,000 ML IV SCH (05:37)
--- NOTE | 2021-06-22 07:43 | P.DS ---
Providers Date of admission: 06/22/21 02:05 Expected date of discharge: 06/22/21 Attending physician: Kristi Mccartney Primary care physician: Mallika Chau - Discharge Diagnosis(es) (1) Menorrhagia Current Visit: No Status: Resolved (2) Status post robot-assisted surgical procedure total laparoscopic hysterectomy bilateral salpingectomy with da joy and rubens gnostic cystoscopy Current Visit: Yes Status: Acute Hospital Course: Patient presented for TLHBS using da Joy and diagnostic cystoscopy. She underwent this procedure without crepitation. Postoperative course was uneventful. Her pain is well-controlled, she denies nausea, vomiting, chest pain, shortness of breath or any calf pain. She is tolerating her diet and passing flatus. Ambulating and voiding without difficulty. Her incisions are clean, dry, intact. Patient will be discharged home post operative day #1 in stable condition to follow-up with me in 3 weeks. Plan - Discharge Summary Discharge Rx Participant: Yes New Discharge Prescriptions: New Acetaminophen-Codeine 300-30mg [Tylenol w/codeine #3] 1 - 2 each PO Q6HR PRN #20 tab PRN Reason: Severe Pain Ibuprofen [Motrin] 600 mg PO Q6HR PRN #30 tab PRN Reason: Mild Pain Or Fever >= 100.5 No Action lisinopriL 30 mg PO DAILY Semaglutide [Ozempic] 0.25 mg SQ SA Metoprolol Succinate [Toprol XL] 25 mg PO DAILY Discharge Medication List Metoprolol Succinate [Toprol XL] 25 mg PO DAILY 06/18/21 [History] Semaglutide [Ozempic] 0.25 mg SQ SA 06/18/21 [History] lisinopriL 30 mg PO DAILY 06/18/21 [History] Acetaminophen-Codeine 300-30mg [Tylenol w/codeine #3] 1 - 2 each PO Q6HR PRN #20 tab 06/22/21 [Rx] Ibuprofen [Motrin] 600 mg PO Q6HR PRN #30 tab 06/22/21 [Rx] Follow up Appointment(s)/Referral(s): Kristi Mccartney DO [Doctor of Osteopathic Medicine] - 3 Weeks Discharge Disposition: HOME SELF-CARE
[2021-06-22 07:55] LABS: Basophils % (A) 0 %; Eosinophils # (A) 0.5 k/uL (0-0.7); Eosinophils % (A) 4 %; HCT 40.2 % (34.0-46.0); HGB 12.9 gm/dL (11.4-16.0); Lymphocytes % (A) 8 %; MCH 32.3 pg (25.0-35.0); MCHC 31.9 g/dL (31.0-37.0); MCV 101.1 fL (80.0-100.0); Mean Platelet Volume 8.5; Monocytes # (A) 0.4 k/uL (0-1.0); Monocytes % (A) 4 %; Neutrophils # (A) 9.7 k/uL (1.3-7.7); Neutrophils % (A) 83 %; Platelet Count 261 k/uL (150-450); RBC 3.98 m/uL (3.80-5.40); RDW 12.3 % (11.5-15.5); WBC 11.7 k/uL (3.8-10.6)
[2021-06-22] MEDS: METOPROLOL SUCCINATE (ER) 25 MG TAB.ER.24H PO SCH (08:26)
[2021-06-22] MEDS: lisinopriL 10 MG TAB PO SCH (08:26)
[2021-06-22 09:18] VITALS: BP 123/67; PULSE 84; RESP 18; TEMP 98
[2021-06-22] MEDS: SENNOSIDES-DOCUSATE SODIUM 1 EACH TAB PO SCH (10:53)
[2021-06-23] MEDS ORDERED: Semaglutide [Ozempic] 0.25 MG/0.2 ML SQ SCH (09:00)
== END 2021-06-22 10:45 | disposition home or self-care (01) ==
LOC: OR 05:35 → 4FBP 09:05 → OR 06-22 02:00 → 4FBP 06-22 02:05
PROVIDERS: ADMIT Obstetrics & Gynecology; ATTEND Obstetrics & Gynecology
DX: N92.1 Excessive and frequent menstruation with irregular cycle (principal); D25.1 Intramural leiomyoma of uterus; N93.8 Other specified abnormal uterine and vaginal bleeding; E11.9 Type 2 diabetes mellitus without complications; I10 Essential (primary) hypertension; K21.9 Gastro-esophageal reflux disease without esophagitis; Z98.84 Bariatric surgery status; Z90.49 Acquired absence of other specified parts of digestive tract; Z98.890 Other specified postprocedural states; Z79.899 Other long term (current) drug therapy; Z80.3 Family history of malignant neoplasm of breast
CPT/HCPCS: 58571; S2900; 64999; 85025; 86850; 86900; 86901; 88307

== ENCOUNTER → 2022-09-24 | Outpatient (CLI) | payer BC ==
--- NOTE | 2022-09-25 08:46 | MM ---
Reason for Exam: Screening (asymptomatic). Last mammogram was performed 2 year(s) and 0 month(s) ago. Patient History: Menarche at age 11. First Full-Term at age 19. Hysterectomy at age 46. Hormonal Contraceptives for 20 years from age 14 until age 34. 12/2008, Bilateral Reduction. Paternal aunt had breast cancer, age 67. Mother had breast cancer, age 55. Risk Values: Bessy 5 year model risk: 1.8%. NCI Lifetime model risk: 16.7%. Prior Study Comparison: 05/26/2018 Bilateral Screening Mammogram, [facility]. 09/14/2019 Bilateral Screening Mammogram, [facility]. 09/15/2020 Bilateral Screening Mammogram, [facility]. Tissue Density: The breast tissue is heterogeneously dense. This may lower the sensitivity of mammography. Findings: Analyzed By CAD. Asymmetric nodular density upper outer right breast approximately 14.4 cm from the nipple. Additional views are recommended. Benign calcifications are redemonstrated. No suspicious calculi seen. Overall Assessment: Incomplete: need additional imaging evaluation, BI-RAD 0 Management: Diagnostic Mammogram of the right breast. . Patient should continue monthly self-breast exams. A clinical breast exam by your physician is recommended on an annual basis. This exam should not preclude additional follow-up of suspicious palpable abnormalities. Note on Bessy scores and lifetime risk: 1. A Bessy score greater than 3% is considered moderate risk. If this is the case, consider specialist referral to assess eligibility for a risk reducing agent. 2. If overall lifetime risk for the development of breast cancer is 20% or higher, the patient may qualify for future screening with alternating mammogram and breast MRI. Electronically signed and approved by: Venancio Ramirez M.D. Radiologis
== END | disposition home or self-care (01) ==
LOC: RADMAMWWP 07:13
PROVIDERS: ATTEND Family Medicine
DX: Z12.31 Encounter for screening mammogram for malignant neoplasm of breast (principal); Z80.3 Family history of malignant neoplasm of breast
CPT/HCPCS: 77063; 77067

== ENCOUNTER → 2022-09-26 | Outpatient (CLI) | payer BC ==
--- NOTE | 2022-09-26 08:07 | MM ---
Reason for Exam: Additional evaluation requested from abnormal screening. Last screening mammogram was performed less than 1 month ago. Patient History: Menarche at age 11. First Full-Term at age 19. Hysterectomy at age 46. Hormonal Contraceptives for 20 years from age 14 until age 34. 12/2008, Bilateral Reduction. Paternal aunt had breast cancer, age 67. Mother had breast cancer, age 55. Risk Values: Bessy 5 year model risk: 1.8%. NCI Lifetime model risk: 16.7%. Prior Study Comparison: 06/05/2012 Bilateral Diagnostic Mammogram, [facility]. 11/02/2013 Screening Mammogram, [facility]. 12/05/2014 Screening Mammogram, [facility]. 11/12/2016 Bilateral Screening Mammogram, [facility]. 05/26/2018 Bilateral Screening Mammogram, [facility]. 09/14/2019 Bilateral Screening Mammogram, [facility]. 09/15/2020 Bilateral Screening Mammogram, [facility]. 09/24/2022 Bilateral MG 3D screening mammo w/cad, [facility]. Tissue Density: Right: The breast tissue is heterogeneously dense. This may lower the sensitivity of mammography. Findings: Analyzed By CAD. No evidence for mass or distortion. Overall Assessment: Negative, BI-RAD 1 Management: Screening Mammogram of both breasts in 1 year. . Results were given to the patient verbally at the time of exam. Patient should continue monthly self-breast exams. A clinical breast exam by your physician is recommended on an annual basis. This exam should not preclude additional follow-up of suspicious palpable abnormalities. Note on Bessy scores and lifetime risk: 1. A Bessy score greater than 3% is considered moderate risk. If this is the case, consider specialist referral to assess eligibility for a risk reducing agent. 2. If overall lifetime risk for the development of breast cancer is 20% or higher, the patient may qualify for future screening with alternating mammogram and breast MRI. Electronically signed and approved by: Venancio Ramirez M.D. Radiologis
== END | disposition home or self-care (01) ==
LOC: RADMAMWWP 07:41
PROVIDERS: ATTEND Family Medicine
DX: R92.8 Other abnormal and inconclusive findings on diagnostic imaging of breast (principal); Z80.3 Family history of malignant neoplasm of breast
CPT/HCPCS: 77061; 77065

== ENCOUNTER → 2023-10-31 | Outpatient (CLI) | payer BC ==
--- NOTE | 2023-10-31 16:42 | MM ---
Reason for Exam: Screening (asymptomatic). Last mammogram was performed 1 year(s) and 1 month(s) ago. Patient History: Menarche at age 11. First Full-Term at age 19. Hysterectomy at age 46. Hormonal Contraceptives for 20 years from age 14 until age 34. 12/2008, Bilateral Reduction. Paternal aunt had breast cancer, age 67. Mother had breast cancer, age 55. Risk Values: Bessy 5 year model risk: 1.8%. NCI Lifetime model risk: 16.4%. Prior Study Comparison: 09/15/2020 Bilateral Screening Mammogram, [facility]. 09/24/2022 Bilateral MG 3D screening mammo w/cad, [facility]. 09/26/2022 Right MG 3D work up w/cad RT, [facility]. Tissue Density: The breasts are heterogeneously dense, which may obscure small masses. Findings: Analyzed By CAD. Palpable marker placed along the upper outer quadrant left breast. Underlying the marker, there is a new, large, 3.7 cm suspicious irregular high density mass. Otherwise, no significant change. Overall Assessment: Incomplete: need additional imaging evaluation, BI-RAD 0 Management: Diagnostic Breast Ultrasound of the left breast. [facility] will attempt to contact patient to return for supplemental views and ultrasound if indicated. Electronically signed and approved by: Charito Bell M.D. Radiologist
--- NOTE | 2023-10-31 16:56 | USB ---
Reason for Exam: Clinical finding. Patient History: Menarche at age 11. First Full-Term at age 19. Hysterectomy at age 46. Hormonal Contraceptives for 20 years from age 14 until age 34. 12/2008, Bilateral Reduction. Paternal aunt had breast cancer, age 67. Mother had breast cancer, age 55. Risk Values: Bessy 5 year model risk: 1.8%. NCI Lifetime model risk: 16.4%. Technique: Method: Whole Breast Handheld. Prior Study Comparison: 09/15/2020 Bilateral Screening Mammogram, [facility]. 09/24/2022 Bilateral MG 3D screening mammo w/cad, [facility]. 09/26/2022 Right MG 3D work up w/cad RT, [facility]. Findings: The whole breast of the left breast, the axilla of the left breast and the retroareolar of the left breast were scanned. A complete US of all four quadrants of the breast, axilla, and retro-areolar region were reviewed. * Large irregular hypoechoic solid mass 2:00 position, 9 cm from the nipple corresponding to the patient's palpable site measuring 3.7 x 2.7 x 2.7 cm. Some associated vascularity is present. Tissue sampling recommended. * At the 2:00 position, 9 cm from the nipple just adjacent, there is an elongated irregular hypoechoic area measuring 1.8 x 0.8 cm, also suspicious, tissue sampling recommended. * At the 9:00 position near the nipple, there is a shadowing area measuring 1 cm compatible with a boil cyst calcification on mammogram. * Deep within the left axilla, there is a questionable thickened lymph node measuring 1.7 x 1.1 x 1.2 cm. Possible cortical thickening up to 6 mm. Reassess at the time of the patient's biopsy. A more superficial benign lymph node is noted. * No other solid or cystic lesion. Overall Assessment: Highly suggestive of malignancy, BI-RAD 5 Management: Ultrasound Core Biopsy of the left breast. Two site biopsy left breast in [facility]. Separate appointment with interventional radiology to reassess the deep axillary node with possible third site biopsy if warranted. Results were given to the patient verbally at the time of exam. Electronically signed and approved by: Charito Bell M.D. Radiologist
== END | disposition home or self-care (01) ==
LOC: RADMAMWWP 15:57
PROVIDERS: ATTEND Family Medicine
DX: Z12.31 Encounter for screening mammogram for malignant neoplasm of breast (principal); Z80.3 Family history of malignant neoplasm of breast
CPT/HCPCS: 77063; 77067

== ENCOUNTER → 2023-11-12 | Day surgery (SDC) | payer BC ==
--- NOTE | 2023-12-10 10:05 | MM ---
Reason for Exam: Post Procedure Mammogram. Last screening mammogram was performed less than 1 month ago. Patient History: Menarche at age 11. First Full-Term at age 19. Hysterectomy at age 46. Hormonal Contraceptives for 20 years from age 14 until age 34. 12/2008, Bilateral Reduction. Paternal aunt had breast cancer, age 67. Mother had breast cancer, age 55. Risk Values: Bessy 5 year model risk: 1.8%. NCI Lifetime model risk: 16.4%. Prior Study Comparison: 09/24/2022 Bilateral MG 3D screening mammo w/cad, [facility]. 09/26/2022 Right MG 3D work up w/cad RT, [facility]. 10/31/2023 Left US breast workup LT, [facility]. 10/31/2023 Bilateral MG 3D screening mammo w/cad, [facility]. Tissue Density: Left: The breasts are heterogeneously dense, which may obscure small masses. Pathology Description: Location: 2 o'clock. Marker Left Behind. Needle Type: Celero Gauge: 12 A - 3 cores, wing clip B - 3 cores, butterfly clip The procedure of ultrasound guided core biopsy was explained to the patient. Benefits, alternatives, and risks were discussed. An informed consent was then obtained. The patient was placed in supine positioning for imaging and for the procedure. The overlying skin was prepped and draped in usual sterile fashion. Lidocaine buffered with bicarbonate was used as anesthetic into the skin and subcutaneous tissue up to areas of concern on in the left 2:00 breast. Under ultrasound guidance, a 12-gauge vacuum assisted biopsy gun device was used to obtain 3 core samples were obtained from each site of biopsy clips were placed at each area of concern. The patient tolerated the procedure well without any immediate complication. The patient was kept in the radiology department for short stay after the procedure and then discharged home in stable condition. Postprocedure mammogram: The patient was transferred to mammography for physician ordered post procedure mammogram for clip placement verification. Impression: Successful, uncomplicated ultrasound guided core biopsy of the 2 areas of concern in the left 2:00 breast, full pathology results to follow. Pathology Results: Result: Malignant, Invasive ductal carcinoma. Pathology and radiology were reviewed. Findings are concordant. A. LEFT BREAST, TWO O'CLOCK 3.6 CM, NEEDLE CORE BIOPSY: Invasive poorly differentiated ductal carcinoma (Grade 3). See Surgical Pathology Cancer Case Summary. B. LEFT BREAST, TWO O'CLOCK 1.7 CM, NEEDLE CORE BIOPSY: Benign breast tissue with stromal fibrosis/scar. Overall Assessment: Malignant Assessment: MG diagnostic mammo LT wo CAD. - Left: Known biopsy proven malignancy, BI-RAD 6. Management: Surgical Consultation of the left breast. Electronically signed and approved by: Venancio Ramirez M.D. Radiologis
== END ==
LOC: RADUSWWP 10:12
PROVIDERS: ATTEND Family Medicine
DX: R92.8 Other abnormal and inconclusive findings on diagnostic imaging of breast
CPT/HCPCS: 88305; 77065; 19083; A4648

== ENCOUNTER 2024-07-30 18:28 | Emergency (ER) | payer BC ==
[2024-07-30 18:34] VITALS: TEMP 98.9
--- NOTE | 2024-07-30 19:04 | ED ---
General Adult HPI - General Chief complaint: Fever Stated complaint: Post -Op check on L Breast Time Seen by Provider: 07/30/24 18:56 Source: patient, RN notes reviewed Mode of arrival: ambulatory Limitations: no limitations - History of Present Illness Initial comments: 49-year-old female presenting for left breast redness x 1 day with associated fever. Patient states she had a lumpectomy performed June [address] Antonio George at [facility]. Did not experience any complications from the surgery. Denies redness or drainage from the incision site. States she had a follow-up ultrasound on July 22 where she was told there was a fluid pocket however patient was asymptomatic at that time and was told they would likely resolve on its own. States she began to experience left breast pain and tenderness this morning and reports chills. Last Tylenol was 11 AM this morning. - Related Data Home Medications Medication Instructions Recorded Confirmed Ondansetron Odt [Zofran ODT] 4 mg PO Q8HR PRN 06/02/24 06/02/24 Previous Rx's Medication Instructions Recorded Prochlorperazine [Compazine] 5 mg PO Q8H PRN #10 tab 06/03/24 Allergies Allergy/AdvReac Type Severity Reaction Status Date / Time paclitaxel [From Taxol] Allergy Anaphylaxis Verified 07/30/24 18:34 IV contrast Allergy Rash/Hives Uncoded 07/30/24 18:35 Review of Systems ROS Statement: Those systems with pertinent positive or pertinent negative responses have been documented in the HPI. ROS Other: All systems not noted in ROS Statement are negative. Past Medical History Past Medical History: Cancer, Diabetes Mellitus, GERD/Reflux, Musculoskeletal Disorder Additional Past Medical History / Comment(s): herniated disc; breast cancer History of Any Multi-Drug Resistant Organisms: None Reported Past Surgical History: Bariatric Surgery, Cholecystectomy, Hysterectomy, Tonsillectomy, Uterine Ablation Additional Past Surgical History / Comment(s): BILAT carpal tunnel SX, lap band, panniculectomy, Band Removed 09-27-19, PAIN CLINIC PROCEDURE, EGD, lumpectomy 06/21/24 Past Anesthesia/Blood Transfusion Reactions: Postoperative Nausea & Vomiting (PONV) Additional Past Anesthesia/Blood Transfusion Reaction / Comment(s): states passed out on way home after panniculectomy-not sure if was anesthesia related Past Psychological History: No Psychological Hx Reported Smoking Status: Never smoker Past Alcohol Use History: None Reported Past Drug Use History: None Reported - Past Family History Mother Family Medical History: Cancer Additional Family Medical History / Comment(s): BREAST General Exam Limitations: no limitations General appearance: alert, in no apparent distress Head exam: Present: atraumatic, normocephalic, normal inspection Respiratory exam: Present: normal lung sounds bilaterally, other (Left breast is diffusely erythematous, warm, and tender. There is an incision site present on left upper outer aspect of breast with no erythema, drainage, or sign of bacterial infection). Absent: respiratory distress, wheezes, rales, rhonchi, stridor Cardiovascular Exam: Present: regular rate, normal rhythm, normal heart sounds. Absent: systolic murmur, diastolic murmur, rubs, gallop, clicks Neurological exam: Present: alert, oriented X3 Psychiatric exam: Present: normal affect, normal mood Skin exam: Present: warm, dry, intact, normal color. Absent: rash Course Vital Signs 07/30/24 07/30/24 07/30/24 18:30 19:56 22:33 Temperature 98.9 F Pulse Rate 117 H 107 H 100 Respiratory 18 15 20 Rate Blood Pressure 131/85 121/78 O2 Sat by Pulse 99 99 98 Oximetry Medical Decision Making - Medical Decision Making Was pt. sent in by a medical professional or institution (ANDREZ Jamison, [employer], urgent care, hospital, or half-way...) When possible be specific @ -No Did you speak to anyone other than the patient for history (EMS, parent, family, police, friend...)? What history was obtained from this source @ -No Did you review nursing and triage notes (agree or disagree)? Why? @ -I reviewed and agree with nursing and triage notes Were old charts reviewed (outside hosp., previous admission, EMS record, old EKG, old radiological studies, urgent care reports/EKG's, half-way records)? Report findings @ -No old charts were reviewed Differential Diagnosis (chest pain, altered mental status, abdominal pain women, abdominal pain men, vaginal bleeding, weakness, fever, dyspnea, syncope, headache, dizziness, GI bleed, back pain, seizure, CVA, palpatations, mental health, musculoskeletal)? @ -Differential Musculoskeletal Mastitis, breast abscess, muscular strain, contusion, ligament sprain, fracture, arthritis, septic arthritis, bursitis, cellulitis, muscle spasm, nerve compression, DVT, arterial occlusion, herpes zoster, electrolyte abnormality, tumor.... This is not meant to be in all inclusive list EKG interpreted by me (3pts min.). @ -None X-rays interpreted by me (1pt min.). @ -None done CT interpreted by me (1pt min.). @ -None done U/S interpreted by me (1pt. min.). @ -Breast ultrasound reveals large fluid collection most compatible with abscess in the clinical setting of infection. Surgical consultation for drainage recommended What testing was considered but not performed or refused? (CT, X-rays, U/S, labs)? Why? @ -None What meds were considered but not given or refused? Why? @ -None Did you discuss the management of the patient with other professionals (professionals i.e. , PA, [employer]ER, lab, RT, psych nurse, addiction social worker, magisterial district judge, teacher, bsa officer, case management rn)? Give summary @ -I spoke with transfer team and Dr. Goodmna at [facility] who accepts transfer Was smoking cessation discussed for >3mins.? @ -No Was critical care preformed (if so, how long)? @ -No Were there social determinants of health that impacted care today? How? (Homelessness, low income, unemployed, alcoholism, drug addiction, transportation, low edu. Level, literacy, decrease access to med. care, nursing home, rehab)? @ -No Was there de-escalation of care discussed even if they declined (Discuss DNR or withdrawal of care, Hospice)? DNR status @ -No What co-morbidities impacted this encounter? (DM, HTN, Smoking, COPD, CAD, Cancer, CVA, ARF, Chemo, Hep., AIDS, mental health diagnosis, sleep apnea, morbid obesity)? @ -None Was patient admitted / discharged? Hospital course, mention meds given and route, prescriptions, significant lab abnormalities, going to OR and other pertinent info. @ -Transferred. 49-year-old female presenting for left breast pain/redness x 1 day with subjective fevers. She underwent lumpectomy June [address] George. Initial temperature is 98.9, heart rate 117 bpm. On examination the entire left breast is erythematous, warm. No fluctuance or palpable masses. Lab work remarkable for white blood cell count 11, CRP 33, lactic 1.3. Breast ultrasound shows large fluid collection most compatible with abscess. As abscess is likely postop complication, patient will need to be transferred to [facility] to be seen by breast surgery team. Patient will be be transported via private vehicle as an ER to ER transfer. Accepting physician is Dr. Goodman. Case was discussed with my ED attending Dr. Amaro Undiagnosed new problem with uncertain prognosis? @ -No Drug Therapy requiring intensive monitoring for toxicity (Heparin, Nitro, Insulin, Cardizem)? @ -No Were any procedures done? @ -No Diagnosis/symptom? @ -Left breast abscess Acute, or Chronic, or Acute on Chronic? @ -Acute Uncomplicated (without systemic symptoms) or Complicated (systemic symptoms)? @ -Complicated Side effects of treatment? @ -No Exacerbation, Progression, or Severe Exacerbation? @ -No Poses a threat to life or bodily function? How? (Chest pain, [place], [place], pneumonia, PE, COPD, DKA, ARF, appy, cholecystitis, CVA, Diverticulitis, Homicidal, Suicidal, threat to staff... and all critical care pts) @ -Yes - Lab Data Result diagrams: 07/30/24 19:07 07/30/24 19:07 Lab Results 07/30/24 07/30/24 07/30/24 Range/Units 19:07 19:07 19:07 WBC 10.94 H (4.50-10.00) 10*3/uL RBC 3.83 L (4.10-5.20) 10*6/uL Hgb 12.1 (12.0-15.0) g/dL Hct 36.8 L (37.2-46.3) % MCV 96.1 (80.0-97.0) fL MCH 31.6 (27.0-32.0) pg MCHC 32.9 (32.0-37.0) g/dL Plt Count 195 (140-440) 10*3/uL MPV 10.0 (9.5-12.2) fL Immature Gran % (Auto) 0.3 % Neutrophils % 78.5 % Lymphocytes % 11.2 % Monocytes % 8.1 % Eosinophils % 1.6 % Basophils % 0.3 % Immature Gran # 0.03 (0.00-0.04) 10*3/uL Neutrophils # 8.58 H (1.80-7.70) 10*3/uL Lymphocytes # 1.23 (0.90-5.00) 10*3/uL Monocytes # 0.89 (0.20-1.00) 10*3/uL Eosinophils # 0.18 (0.04-0.35) 10*3/uL Basophils # 0.03 (0.00-0.10) 10*3/uL Sodium 135 L (137-145) mmol/L Potassium 3.8 (3.5-5.1) mmol/L Chloride 101 (98-107) mmol/L Carbon Dioxide 22 (22-30) mmol/L Anion Gap 12 mmol/L BUN 13 (7-17) mg/dL Creatinine 0.74 (0.52-1.04) mg/dL Est GFR (CKD-EPI)AfAm >90 (>60 ml/min/1.73 sqM) Est GFR (CKD-EPI)NonAf >90 (>60 ml/min/1.73 sqM) Glucose 99 (74-99) mg/dL Plasma Lactic Acid Enal 1.3 (0.7-2.0) mmol/L Calcium 9.3 (8.4-10.2) mg/dL Total Bilirubin 1.0 (0.2-1.3) mg/dL AST 23 (14-36) U/L ALT 25 (4-34) U/L Alkaline Phosphatase 69 (38-126) U/L C-Reactive Protein 32.9 H (<1.0) mg/dL Total Protein 6.5 (6.3-8.2) g/dL Albumin 4.0 (3.5-5.0) g/dL Disposition Clinical Impression: Left breast abscess Disposition: OTHER INSTITUTION NOT DEFINED Referrals: Mallika Chau DO [Primary Care Provider] - 1-2 days Time of Disposition: 22:44 - Out of Hospital Transfer - Req. Specs Out of Hospital Transfer - Requested Specifics: Other Emergency Center ([facility])
[2024-07-30] MEDS: ACETAMINOPHEN TAB 500 MG TAB PO STA (19:20)
[2024-07-30 19:21] LABS: Basophils # (A) 0.03 10*3/uL (0.00-0.10); Basophils % (A) 0.3 %; Eosinophils # (A) 0.18 10*3/uL (0.04-0.35); Eosinophils % (A) 1.6 %; HCT 36.8 % (37.2-46.3); HGB 12.1 g/dL (12.0-15.0); Lymphocytes # (A) 1.23 10*3/uL (0.90-5.00); Lymphocytes % (A) 11.2 %; MCH 31.6 pg (27.0-32.0); MCHC 32.9 g/dL (32.0-37.0); MCV 96.1 fL (80.0-97.0); Monocytes # (A) 0.89 10*3/uL (0.20-1.00); Monocytes % (A) 8.1 %; Neutrophils # (A) 8.58 10*3/uL (1.80-7.70); Neutrophils % (A) 78.5 %; Platelet Count 195 10*3/uL (140-440); RBC 3.83 10*6/uL (4.10-5.20); WBC 10.94 10*3/uL (4.50-10.00)
[2024-07-30] MEDS: SODIUM CHLORIDE 0.9% 1,000 ML IV STA (19:21)
[2024-07-30 19:32] LABS: ALT 25 U/L (4-34); AST 23 U/L (14-36); African American GFR (CKD) >90 (>60 ml/min/1.73 sqM); Alkaline Phosphatase 69 U/L (38-126); Anion Gap 12 mmol/L; Blood Urea Nitrogen 13 mg/dL (7-17); Calcium 9.3 mg/dL (8.4-10.2); Carbon Dioxide 22 mmol/L (22-30); Chloride 101 mmol/L (98-107); Glucose 99 mg/dL (74-99); Non-African American GFR(CKD) >90 (>60 ml/min/1.73 sqM); Potassium 3.8 mmol/L (3.5-5.1); Sodium 135 mmol/L (137-145); Total Protein 6.5 g/dL (6.3-8.2)
[2024-07-30 20:03] LABS: C Reactive Protein 32.9 mg/dL (<1.0)
[2024-07-30 22:33] VITALS: BP 121/78; PULSE 100; RESP 20
== END 2024-07-30 23:06 | disposition other institution (70) ==
LOC: EC 18:28
DX: N61.1 Abscess of the breast and nipple (principal); Z88.8 Allergy status to other drugs, medicaments and biological substances
CPT/HCPCS: 36415; 80053; 83605; 85025; 86140; 96360; 96361; 99285

== ENCOUNTER → 2024-10-30 | Outpatient (CLI) | payer BC ==
[2024-10-30 13:27] LABS: HCT 42.7 % (37.2-46.3); HGB 13.8 g/dL (12.0-15.0); MCH 29.9 pg (27.0-32.0); MCHC 32.3 g/dL (32.0-37.0); MCV 92.6 FL (80.0-97.0); NRBC Per 100 WBC 0 X 10*3/uL (0.00-0.01); Platelet Count 246 X 10*3/uL (140-440); RBC 4.61 X 10*6/uL (4.10-5.20); RDW 13.2 % (11.5-14.5); WBC 5.66 X 10*3/uL (4.50-10.00)
[2024-11-01 14:08] LABS: Anti-DNA, DS unit 1.0 IU/mL; DNA Double-Stranded Negative (Negative)
== END | disposition home or self-care (01) ==
LOC: LABWHC1 09:28
PROVIDERS: ATTEND Family Medicine
DX: K11.7 Disturbances of salivary secretion (principal); R21 Rash and other nonspecific skin eruption
CPT/HCPCS: 36415; 85027; 85652; 86038; 86225